=== PATIENT | male | born 1960 | race Caucasian/White ===

== ENCOUNTER 2016-06-08 05:47 | Inpatient (IN) | payer MEDICAID, OTHER ==
[2016-06-08] MEDS ORDERED: NORMAL SALINE 1,000 ML IV ONE ×3 (06:01→10:56)
--- NOTE | 2016-06-08 06:04 | ERNOTE ---
<Omer Giraldo - Last Filed: 06/08/16 08:07> Neuro HPI ER Record Presenting Symptoms: other - altered mental status Time Seen by Provider: 06/08/16 05:56 Source: EMS Exam Limitations: clinical condition Allergies/Adverse Reactions: Allergies Allergy/AdvReac Type Severity Reaction Status Date / Time No Known Allergies Allergy Verified 09/30/14 08:06 Home Medications: HOME MEDICATIONS levETIRAcetam [Keppra] 500 mg PO BID 09/25/14 [Last Taken Unknown] - History of Present Illness Narrative: Pt has been lying on a "friends" floor for 2 days. The friend got concerned and called EMS Onset: cannot confirm onset Severity: moderate - Character of Deficits New weakness: Present: general (diffuse) Additional Deficits: Present: cannot stand Baseline Cognition: Present: alert but confused Associated Symptoms: Reports: fever/chills, sweating, altered mental status. Denies: chest pain Review of Systems - Narrative Narrative: ROS is unreliable in this patient due to confusion. - Review of Systems Gastrointestinal/Abdominal: Present: nausea, vomiting, diarrhea - Reported by EMS as reported to them from homeowner where he has been lying on the floor - Patient's Past Medical History Patient History - Medical: Seizures, Other Patient History - Cardiac/Respiratory: COPD, Hypertension Patient History - Cancer: No Hx of Cancer Patient History - Surgical Procedures: Cataracts, Other Patient History - Other: None - Social History Living Situations: significant other Abuse History: No History of abuse Psych History: Hx of Anxiety, Hx of Depression Alcohol Use: heavy Drug Use: other Physical Exam - Physical Exam General Appearance: Present: mild distress, lethargic Eye Exam: Normal inspection: bilateral Ears, Nose, Throat: Present: other - dried blood in the right nare and in the mouth, no fresh bleeding. Right temporal area concavity- pt states he injured it previously no specifics given Neck: Present: normal inspection, nontender Respiratory: Present: no respiratory distress, normal breath sounds Cardiovascular/Chest: Present: no murmur, tachycardia Gastrointestinal/Abdominal: Present: tenderness - diffuse, abnormal bowel sounds - hypoactive. Absent: guarding, rebound Back Exam: Present: no vertebral tenderness Extremity Exam: Present: no edema, other - cold extremities Neurological Exam: Present: disoriented to time, disoriented to place Skin Exam: Present: cool/dry, pallor Lymphatic Exam: Present: no adenopathy Ara Coma Scale - Assess Eye Opening: To Voice Motor: Obeys Commands Verbal: Confused - Total Coma Scale Total: 13 ED Progress - Results and Orders Patient's Lab Results:: I have reviewed the patient's lab results. Results and Orders: Laboratory Tests 06/08/16 06/08/16 06:05 06:05 WBC 8.7 Hgb 8.7 L Hct 26.0 L Plt Count 81 L Sodium 127 L Chloride 80 L Carbon Dioxide 10.3 L Anion Gap 40.6 H BUN 83 H Creatinine 2.74 H Est GFR (Non-Af Amer) 26 L D Random Glucose 300 H Calcium 8.7 Total Bilirubin 2.6 H AST 128 H ALT 42 Alkaline Phosphatase 81 Creatine Kinase 281 H Total Protein 5.7 L Albumin 2.8 L Ethyl Alcohol Less than 3.0 - Vital Signs Patient's Vital Signs:: I have reviewed the patient's vital signs. Vital Signs: Vital Signs 06/08/16 05:54 Temperature 35.6 C L Pulse Rate 110 H Respiratory 99 H Rate Blood Pressure 115/83 O2 Sat by Pulse 99 Oximetry - EKG EKG read: Interp. by mo EKG Comments: Sinus tachycardia with significant artifact - X-Ray X-Ray #1 X-Ray: chest Interpretation: Interp. by me X-ray Comments: nothing acute X-Ray #2 X-Ray: abdomen Interpretation: Interp. by me X-ray Comments: nothing acute - Progress/Reassessment Chief Complaint: Altered Mental Status Progress:: Improved - Transfer of Care Physician Sign Out: Omer Giraldo Receiving Physician: Sudhir Casas Pending Results: Labs Expected Disposition: Admit Departure Clinical Impression: Dehydration Altered mental status, unspecified Qualifiers: Altered mental status type: somnolence Qualified Code(s): R40.0 - Somnolence Anemia Qualifiers: Anemia type: unspecified type Qualified Code(s): D64.9 - Anemia, unspecified - Departure Disposition: [facility] Condition: Fair <Sudhir Casas - Last Filed: 06/08/16 10:25> Neuro HPI ER Record Date of Service: 06/08/16 Presenting Symptoms: other Immunizations: IMMUNIZATION HX Immunizations Up to Date No History of Influenza Vaccine No Hx Pneumococcal Vaccination No ED Progress - Vital Signs Vital Signs: Vital Signs 06/08/16 06/08/16 06/08/16 05:54 06:09 06:31 Temperature 35.6 C L Pulse Rate 110 H 121 H 128 H Respiratory 99 H 29 H Rate Blood Pressure 115/83 69/45 O2 Sat by Pulse 99 100 Oximetry 06/08/16 06/08/16 06/08/16 06:45 07:32 08:44 Temperature 36.4 C L Pulse Rate 134 H 121 H 122 H Respiratory 32 H 32 H 30 H Rate Blood Pressure 98/41 84/53 107/71 O2 Sat by Pulse 98 98 98 Oximetry 06/08/16 09:15 Temperature Pulse Rate 129 H Respiratory 30 H Rate Blood Pressure 97/58 O2 Sat by Pulse 98 Oximetry
[2016-06-08] MEDS ORDERED: DEXTROSE 50%-WATER 50 ML SYRG IV ONE (06:06)
[2016-06-08] MEDS ORDERED: DEXTROSE 50%-WATER 50 ML SYRG ONE (06:06)
[2016-06-08] MEDS ORDERED: RINGERS SOLUTION,LACTATED 1,000 ML IV ONE (06:07)
[2016-06-08 06:21] LABS: Hemoglobin 8.7 gm/dL (13.5-18.0); Mean Cell Volume 110.2 fl (78-100); Mean Corpuscular Hemoglobin 36.9 pg (27-31); Mean Corpuscular Hgb Conc 33.5 g/dl (32-36); Mean Platelet Volume 13.3 fl (6.0-9.5); Platelet Count 81 K/mm3 (150-450); Red Blood Count 2.36 M/mm3 (4.7-6.0); Red Cell Distribution Width 11.9 % (11.5-14.0); White Blood Count 8.7 K/mm3 (4.0-10.5)
[2016-06-08 06:24] LABS: Total Cells Counted 100
[2016-06-08 06:36] LABS: AST 128 U/L (0-48); Albumin * 2.8 gm/dl (3.4-5.0); Alkaline Phosphatase * 81 U/L (50-170); Anion Gap 40.6 mmol/L (6.8-13.8); BUN/Creatinine Ratio 30.3 (9.0-21.6); Bilirubin, Total 2.6 mg/dL (0.0-1.1); Blood Urea Nitrogen 83 mg/dL (6-23); CK Total * 281 U/L (0-259); Ca. Corrected For Albumin 9.3 mg/dL (8.4-10.2); Calcium * 8.7 mg/dL (7.9-10.9); Carbon Dioxide 10.3 mmol/L (24-32.6); Chloride 80 mmol/L (97-106); Glucose * 300 mg/dL (70-110); Potassium 3.9 mmol/L (3.4-4.6); Sodium 127 mmol/L (132-142); Total Protein 5.7 gm/dL (6.2-8.2)
[2016-06-08 06:37] LABS: Atypical (Reactive) Lymph 1 % (0-2); Band 20 % (0-2.0); Hypochromia 1+; Lymphocyte 14 % (20-51); Macrocytosis 2+; Neutrophil 65 % (42-75); Neutrophil # 5.7 K/mm3 (1.3-6.0); Platelet Estimate Decreased (NORMAL)
[2016-06-08 07:15] LABS: ALT 42 U/L (19-67)
[2016-06-08] MEDS: MULTIVIT INFUSN,ADULT 4,VIT K 10 ML, THIAMINE HCL 100 MG in DEXTROSE 5 % IN WATER 1,000 ML IV SCH ×3 (07:52)
--- OUTSIDE RECORDS SUMMARY | 2016-06-08 07:56 | XMS REPORT | Continuity of Care Document ---
:1960 Author Organization [facility] ([facility]) Address [address] [place] [address] Phone [phone] Care Team Providers Name Role Phone Elvis Lo Primary Care Provider [phone] Source Comments This disclosure is being made pursuant to the Care Everywhere program, applicable federal and state laws, and may not contain all informaitonavailable regarding this patient.[facility] ([facility]) Active Allergies and Adverse Reactions No Known Allergies Current Medications Prescription Sig. Disp. Refills Start Date End Date Status levETIRAcetam 500 mg Take 1 Tab by mouth 90 Tab 3 01/30/2014 Active tablet 2 times daily. Indications: PREVENT SEIZURES brimonidine 0.2 % Instill 1 Drop onto 3 03/18/2015 Active ophthalmic solution the left eye every 12 hours . Active Problems Problem Noted Date Dupuytren's contracture of left hand 04/08/2015 Dupuytren's contracture of right hand 04/08/2015 S/P craniotomy 07/30/2013 Overview: Right [place] bone cranioplasty Acquired skull defect 07/16/2013 Cerebral edema 05/31/2013 Alcohol withdrawal 05/31/2013 Aspiration pneumonia 05/27/2013 SDH (subdural hematoma) 05/26/2013 Brain compression 05/26/2013 Seizures 05/26/2013 Weakness 05/26/2013 Unconscious 05/26/2013 Acute respiratory failure 05/26/2013 Fatty liver 03/20/2013 Plantar fibromatosis 11/04/2012 Alcohol abuse 10/24/2012 Tobacco use disorder 10/24/2012 Immunizations Name Dates Previously Given Next Due Tdap 10/24/2012 Social History Tobacco Use Types Packs/Day Years Used Date Current Every Day Smoker Cigarettes 1 35 Smokeless Tobacco: Never Used Tobacco Cessation:Ready to Quit: Yes; Counseling Given: Yes Comments: Alcohol Use Drinks/Week oz/Week Comments Yes "heavy drinker". half a gallon of whisky every day . never been in rehab. Last Filed Vital Signs Vital Sign Reading Time Taken Blood Pressure 145/96 04/08/2015 9:20 AM PROTOTYPE CARPENTER Pulse 123 04/08/2015 9:20 AM PROTOTYPE CARPENTER Temperature 36.1 C (97 F) 04/08/2015 9:20 AM PROTOTYPE CARPENTER Respiratory Rate 16 07/31/2013 11:58 AM CDT Height 1.73 m (5' 8.11") 04/08/2015 9:20 AM PROTOTYPE CARPENTER Weight 59.875 kg (132 lb) 04/08/2015 9:20 AM PROTOTYPE CARPENTER Body Mass Index 20.01 04/08/2015 9:20 AM PROTOTYPE CARPENTER Oxygen Saturation 95% 07/31/2013 11:58 AM CDT Plan of Care Patient Goal Type Goal Lifestyle Reduce alcohol intake Quit smoking / using tobacco Health Maintenance Due Date Last Done Comments Hepatitis B Vaccine (1 of 3 - Primary Series) 1960 Lipid Disorder Screening 11/19/1979 MMR Vaccine 11/19/1979 Pneumococcal Vaccine (1 of 1 - PPSV23) 1980 Colonoscopy 2011 Prostate Cancer Screening 11/19/2011 Sigmoidoscopy Colon Cancer Screening 11/19/2011 FOBT Colon Cancer Screening 05/29/2014 05/29/2013 Influenza Vaccine: Seasonal (#1) 10/26/2015 Td Vaccine 10/24/2022 10/24/2012 HCV Screening Completed 10/24/2012 Tdap Vaccine Completed 10/24/2012 Results from Last 3 Months Not on file
[2016-06-08] MEDS ORDERED: LORazepam 2 MG/ML DISP.SYRIN IV ONE (08:00)
[2016-06-08] MEDS ORDERED: CALCIUM CARBONATE 500 MG TAB.CHEW ONE (08:13)
[2016-06-08] MEDS ORDERED: LORazepam 2 MG/ML DISP.SYRIN ONE (08:14)
[2016-06-08] MEDS ORDERED: ONDANSETRON 4 MG TAB.RAPDIS ONE (08:15)
[2016-06-08] MEDS ORDERED: ONDANSETRON 4 MG TAB.RAPDIS PO ONE (08:16)
[2016-06-08] MEDS ORDERED: CALCIUM CARBONATE 500 MG TAB.CHEW PO ONE (09:15)
--- OUTSIDE RECORDS SUMMARY | 2016-06-08 11:13 | XMS REPORT | Continuity of Care Document ---
:1960 Author Organization [facility] ([facility]) Address [address] [place] [address] Phone [phone] Care Team Providers Name Role Phone Elvis Lo Primary Care Provider [phone] Source Comments This disclosure is being made pursuant to the Care Everywhere program, applicable federal and state laws, and may not contain all informaitonavailable regarding this patient.[facility] ([facility]) Active Allergies and Adverse Reactions [...] hand 04/08/2015 S/P craniotomy 07/30/2013 Overview: Right [place] bone cranioplasty Acquired skull defect 07/16/2013 Cerebral [...] Taken Blood Pressure 145/96 04/08/2015 9:20 AM CARBON FURNACE OPERATOR Pulse 123 04/08/2015 9:20 AM CARBON FURNACE OPERATOR Temperature 36.1 C (97 F) 04/08/2015 9:20 AM CARBON FURNACE OPERATOR Respiratory Rate 16 07/31/2013 11:58 AM CDT Height 1.73 m (5' 8.11") 04/08/2015 9:20 AM CARBON FURNACE OPERATOR Weight 59.875 kg (132 lb) 04/08/2015 9:20 AM CARBON FURNACE OPERATOR Body Mass Index 20.01 04/08/2015 9:20 AM CARBON FURNACE OPERATOR Oxygen Saturation 95% 07/31/2013 11:58 AM CDT [...]
[2016-06-08 11:56] LABS: Urine Appearance Slightly Cloudy; Urine Bilirubin 3 mg/dl (NEGATIVE); Urine Blood 250 /ul (NEGATIVE); Urine Color Dark Yellow; Urine Ketone 15 mg/dL (NEGATIVE); Urine Nitrite Negative (NEGATIVE); Urine Protein 30 mg/dL (NEGATIVE); Urine Specific Gravity 1.025 SP.GR. (1.005-1.030)
[2016-06-08 11:57] LABS: Urine Bacteria 1+; Urine Mucus Few - 1+; Urine Transitional Epi Cells Few - 1+ /hpf; Urine WBC 0-5 /hpf (0-5)
[2016-06-08] MEDS ORDERED: FLU VACC QS2016-17 36MOS UP/PF 60 MCG/0.5 ML DISP.SYRIN IM ONE (12:21)
[2016-06-08 13:26] LABS: Cocaine Ur Negative (NEGATIVE); Urine Barbiturate Negative (NEGATIVE); Urine Benzodiazepines Negative (NEGATIVE); Urine Opiates Negative (NEGATIVE); Urine PCP Negative (NEGATIVE); Urine THC Negative (NEGATIVE)
[2016-06-08] MEDS ORDERED: LORazepam 1 MG TABLET PO PRN ×3 (15:49)
[2016-06-08] MEDS: FOLIC ACID 1 MG TABLET PO SCH (18:37)
[2016-06-08] MEDS: THIAMINE HCL 100 MG TABLET PO SCH (18:37)
[2016-06-08] MEDS: INSULIN LISPRO 100 UNITS/ML VIAL SC SCH (18:38)
[2016-06-08] MEDS: PANTOPRAZOLE SODIUM 40 MG TABLET.EC PO SCH (20:00)
[2016-06-08] MEDS: levETIRAcetam 500 MG TABLET PO SCH (20:00)
[2016-06-08 21:24] LABS: Mean Cell Volume 102.5 fl (78-100); Mean Corpuscular Hemoglobin 36.8 pg (27-31); Mean Corpuscular Hgb Conc 35.9 g/dl (32-36); Mean Platelet Volume 12.8 fl (6.0-9.5); Platelet Count 73 K/mm3 (150-450); Red Blood Count 2.01 M/mm3 (4.7-6.0); Red Cell Distribution Width 11.8 % (11.5-14.0); White Blood Count 5.2 K/mm3 (4.0-10.5)
[2016-06-08 21:29] LABS: Hematocrit 20.6 % (42.0-52.0); Hemoglobin 7.4 gm/dL (13.5-18.0)
[2016-06-08 21:32] LABS: Anion Gap 13.1 mmol/L (6.8-13.8); BUN/Creatinine Ratio 56.3 (9.0-21.6); Potassium 3.1 mmol/L (3.4-4.6)
--- NOTE | 2016-06-08 22:03 | HP ---
Chief Complaint - Chief Complaint Date of Service: 06/08/16 Time of Service: 19:45 Chief Complaint: Anemia of chronic disease, Altered mental status History of Present Illness: 55 years old male adm to the hospital with altered mental status: Pt alert to self and poor historian. Additional information obtained from previous records. Per ER notes pt was on the floor x2 days at his friends house before he called EMS. PMH significant for alcohol abuse, head injury, hypertension, COPD, seizures and Dupuytres contracture of both hands. In ER CT head: no acute intra- cranial process, previous craniectomy noted. CXR no acute cardiopulmonary process. patient denies dizziness, headache, blurred vision and report hx of left eye blindness. CXR: right paratracheal prominence mediastinal lipomatosis vs adenopathy. Follow up CT chest pending. - Patient's Past Medical History Patient History - Medical: Seizures, Other Patient History - Cardiac/Respiratory: COPD, Hypertension Patient History - Cancer: No Hx of Cancer Patient History - Surgical Procedures: Cataracts, Other Patient History - Other: None - Family History Brother Family History - Cardiac/Respiratory: COPD Father Family History - Cardiac/Respiratory: Hypertension - Social History Living Situations: significant other Abuse History: No History of abuse Psych History: Hx of Anxiety, Hx of Depression Smoking Status: Current every day smoker Have you smoked in the past 12 months: Yes Do you dip or chew tobacco: No Smoking Start Date: 06/08/77 Patient requests Smoking Cessation Consult: No Initiate information on Smoking Cessation: Yes Alcohol Use: heavy Drug Use: other - Immunizations Immunizations Up to Date: No Hx Pneumococcal Vaccination: No History of Influenza Vaccine: No Review Of Systems (GEN) - Review of Systems Generalized/Overall Review: Present: Weakness, Fatigue EENTM: Present: Other - let eye blindness Respiratory: Present: Cough Cardiac: Present: No Symptoms Reported Abdominal: Present: Constipation, Melena Genitourinary: Present: No Symptoms Reported Musculoskeletal: Present: No Symptoms Reported Neurological: Present: Seizure, Weakness Skin: Present: Bruising - BLLE Endocrine: Present: No Symptoms Reported Allergies/Adverse Reactions: Allergies Allergy/AdvReac Type Severity Reaction Status Date / Time No Known Allergies Allergy Verified 09/30/14 08:06 Home Medications: HOME MEDICATIONS levETIRAcetam [Keppra] 500 mg PO BID 09/25/14 [Last Taken Unknown] Exam - Exam Vital Signs: Vital Signs - Last Taken Temp 37.0 C 06/08/16 19:04 Pulse 117 H 06/08/16 19:04 Resp 20 06/08/16 19:04 BP 99/52 06/08/16 19:04 Pulse Ox 93 06/08/16 19:04 Constitutional: Present: Alert, Cooperative, No distress, Looks Older than stated age ENT Exam: Present: moist mucous membranes Eye Exam: bilateral eye: scleral icterus, left eye: abnormal pupil Neck: Present: full range of motion Back Exam: Present: normal inspection Breasts: Present: Exam deferred Respiratory: Present: chest non-tender, normal breath sounds, no respiratory distress, decreased breath sounds Cardiovascular/Chest: Present: normal peripheral pulses, regular rate, rhythm, no chest tenderness, no edema, tachycardia Peripheral Pulses: dorsalis-pedis (R): 2+, dorsalis-pedis (L): 2+ Abdomen: Present: soft, nontender, no rebound tenderness, hypoactive /Rectal: Present: Exam deferred Extremity: Present: normal range of motion, normal inspection, no pedal edema, no calf tenderness Skin Exam: Present: jaundice, other - BLLE bruising Neurologic: Present: alert, normal mood/affect Appearance: Present: appropriate appearance, impaired recent memory Eye contact: Present: cooperative Thoughts: Present: no apparent hallucination Diagnostic Studies: Abnormal Lab Results 06/08/16 06/08/16 06/08/16 Range/Units 11:15 21:00 21:00 RBC 2.01 L (4.7-6.0) M/mm3 Hgb 7.4 L* (13.5-18.0) gm/dL Hct 20.6 L* D (42.0-52.0) % MCV 102.5 H (78-100) fl MCH 36.8 H (27-31) pg Plt Count 73 L (150-450) K/mm3 MPV 12.8 H (6.0-9.5) fl Sodium 130 L (132-142) mmol/L Potassium 3.1 L D (3.4-4.6) mmol/L Chloride 91 L (97-106) mmol/L BUN 58 H (6-23) mg/dL BUN/Creatinine Ratio 56.3 H (9.0-21.6) Random Glucose 117 H D (70-110) mg/dL Urine Protein 30 H (NEGATIVE) mg/dL Urine Blood 250 H (NEGATIVE) /ul Urine Bilirubin 3 H (NEGATIVE) mg/dl Urine Ictotest Positive H (NEGATIVE) Urine Urobilinogen 2.0 H (NORMAL) EU/dl Urine RBC 5-10 H (0-5) /hpf Ur Epithelial Cells 10-25 H (0-5) /hpf Ur Transition Epith Cell Few - 1+ H (NONE) /hpf Urine Bacteria 1+ H (NONE) Fine Granular Casts 5-10 H (NONE) /LPF Urine Mucus Few - 1+ H (NONE) Laboratory Results WBC 5.2 K/mm3 (4.0-10.5) D 06/08/16 21:00 RBC 2.01 M/mm3 (4.7-6.0) L 06/08/16 21:00 Hgb 7.4 gm/dL (13.5-18.0) L* 06/08/16 21:00 Hct 20.6 % (42.0-52.0) L* D 06/08/16 21:00 MCV 102.5 fl (78-100) H 06/08/16 21:00 MCH 36.8 pg (27-31) H 06/08/16 21:00 MCHC 35.9 g/dl (32-36) 06/08/16 21:00 RDW 11.8 % (11.5-14.0) 06/08/16 21:00 Plt Count 73 K/mm3 (150-450) L 06/08/16 21:00 MPV 12.8 fl (6.0-9.5) H 06/08/16 21:00 Neutrophils % (Manual) 65 % (42-75) 06/08/16 06:05 Band Neuts % (Manual) 20 % (0-2.0) H 06/08/16 06:05 Lymphocytes % (Manual) 14 % (20-51) L 06/08/16 06:05 Neutrophils # (Manual) 5.7 K/mm3 (1.3-6.0) 06/08/16 06:05 Lymphocytes # (Manual) 1.2 k/mm3 (1.5-3.5) L 06/08/16 06:05 Nucleated RBCs 6.0 % (0-1) H 06/08/16 06:05 Atypic/Reactive Lymphs 1 % (0-2) 06/08/16 06:05 Platelet Estimate Decreased (NORMAL) L 06/08/16 06:05 Hypochromasia 1+ 06/08/16 06:05 Macrocytosis 2+ 06/08/16 06:05 pCO2 15.6 mmHg (35.0-48.0) L* 06/08/16 07:38 pO2 105.0 mmHg (83.0-108.0) 06/08/16 07:38 HCO3 8.9 mmol/L (21.0-28.0) L 06/08/16 07:38 Total CO2 9.4 mmol/L (19.0-24.0) L 06/08/16 07:38 Base Excess -14.4 mmol/L (-2.0-3.0) L 06/08/16 07:38 ABG pH 7.37 (7.35-7.45) 06/08/16 07:38 ABG O2 Sat (Measured) 97.9 % (94.0-98.0) 06/08/16 07:38 Sodium 130 mmol/L (132-142) L 06/08/16 21:00 Plasma Sodium 130 mmol/L (130-142) 06/08/16 21:00 Potassium 3.1 mmol/L (3.4-4.6) L D 06/08/16 21:00 Chloride 91 mmol/L (97-106) L 06/08/16 21:00 Carbon Dioxide 29.0 mmol/L (24-32.6) 06/08/16 21:00 Anion Gap 13.1 mmol/L (6.8-13.8) 06/08/16 21:00 BUN 58 mg/dL (6-23) H 06/08/16 21:00 Creatinine 1.03 mg/dL (0.4-1.4) 06/08/16 21:00 Est GFR (Non-Af Amer) 80 mL/min (60-130) D 06/08/16 21:00 BUN/Creatinine Ratio 56.3 (9.0-21.6) H 06/08/16 21:00 Random Glucose 117 mg/dL (70-110) H D 06/08/16 21:00 Calcium 8.0 mg/dL (7.9-10.9) 06/08/16 21:00 Calcium Adj for Albumin 9.3 mg/dL (8.4-10.2) 06/08/16 06:05 Magnesium 1.9 mg/dL (1.2-2.8) 06/08/16 21:00 Total Bilirubin 2.6 mg/dL (0.0-1.1) H 06/08/16 06:05 AST 128 U/L (0-48) H 06/08/16 06:05 ALT 42 U/L (19-67) 06/08/16 06:05 Alkaline Phosphatase 81 U/L (50-170) 06/08/16 06:05 Creatine Kinase 281 U/L (0-259) H 06/08/16 06:05 Total Protein 5.7 gm/dL (6.2-8.2) L 06/08/16 06:05 Albumin 2.8 gm/dl (3.4-5.0) L 06/08/16 06:05 Urine Color Dark yellow 06/08/16 11:15 Urine Appearance Slightly cloudy 06/08/16 11:15 Urine pH 6.0 pH (5.0-7.0) 06/08/16 11:15 Ur Specific [place] 1.025 SP.GR. (1.005-1.030) 06/08/16 11:15 Urine Protein 30 mg/dL (NEGATIVE) H 06/08/16 11:15 Urine Glucose (UA) Negative mg/dL (NEGATIVE) 06/08/16 11:15 Urine Ketones 15 mg/dL (NEGATIVE) 06/08/16 11:15 Urine Blood 250 /ul (NEGATIVE) H 06/08/16 11:15 Urine Nitrate Negative (NEGATIVE) 06/08/16 11:15 Urine Bilirubin 3 mg/dl (NEGATIVE) H 06/08/16 11:15 Urine Ictotest Positive (NEGATIVE) H 06/08/16 11:15 Prot Sulfosalicylic Acd 1+ mg/dL (0) 06/08/16 11:15 Urine Urobilinogen 2.0 EU/dl (NORMAL) H 06/08/16 11:15 Ur Leukocyte Esterase Negative /ul (NEGATIVE) 06/08/16 11:15 Urine RBC 5-10 /hpf (0-5) H 06/08/16 11:15 Urine WBC 0-5 /hpf (0-5) 06/08/16 11:15 Ur Epithelial Cells 10-25 /hpf (0-5) H 06/08/16 11:15 Ur Transition Epith Cell Few - 1+ /hpf (NONE) H 06/08/16 11:15 Urine Bacteria 1+ (NONE) H 06/08/16 11:15 Fine Granular Casts 5-10 /LPF (NONE) H 06/08/16 11:15 Urine Mucus Few - 1+ (NONE) H 06/08/16 11:15 Urine Culture Comments Culture to follow 06/08/16 11:15 Urine Opiates Screen Negative (NEGATIVE) 06/08/16 11:15 Barbiturate Screen Negative (NEGATIVE) 06/08/16 11:15 Ur Phencyclidine Scrn Negative (NEGATIVE) 06/08/16 11:15 Urine Amphetamine Negative (NEGATIVE) 06/08/16 11:15 U Benzodiazepines Scrn Negative (NEGATIVE) 06/08/16 11:15 Urine Cocaine Screen Negative (NEGATIVE) 06/08/16 11:15 Urine Marijuana (THC) Negative (NEGATIVE) 06/08/16 11:15 Ethyl Alcohol Less than 3.0 mg/dL (0.0-10.0) 06/08/16 06:05 Assessment/Plan - Narrative Narrative: Altered mental status: secondary to possible alcohol abuse On adm pt is confused and unable to provide medical history CT head no acute intracranial abnormality, pt with hx heady injury s/p craniectomy 10/08 CXR: right paratracheal prominence mediastinal lipomatosis vs adenopathy. Follow up CT chest pending. Urine drug test pending Continue to monitor and provide supportive care Continue with IVF hydration and MVI Dehydration IVF bolus given and continue with IVF MVI infusion Monitor CMP in am On adm Bun/ cre 83/2.74 ----> 58/1.03 gradually improving after IVF resuscitation Acute blood loss anemia- likely due to GI bleed vs anemia of chronic disease On adm Hgb 8.7---->7.4 gradually trending down possible due in part to hemo- dilution an the GI bleeding Stool OB positive pt stated he had seen black stool in the past but unsure when, he currently feels constipated . Monitor H/H in am Iron panel pending Initiated oral iron Premedicate with Tylenol and Benadryl before transfusion and Lasix between Hypokalemia On adm K+ level 3.9--->3.1 Supplemented Seizures-chronic Continue with home dose of Keppra pad side rails and safety measures while hospitalized. Substance abuse [facility] protocol with ativan Smoking cessation Constipation Oral lasxative and rectal enema Code status: Full Anticipate discharge 1-3 days and follow up with PCP Time 45 minutes and previous chart reviewed. - Assessment/Plan (1) Altered mental status, unspecified Problem: Acute Qualifiers: Altered mental status type: somnolence Qualified Code(s): R40.0 - Somnolence (2) Anemia Problem: Acute Qualifiers: Anemia type: unspecified type Qualified Code(s): D64.9 - Anemia, unspecified (3) Dehydration Problem: Acute (4) Alcohol abuse Problem: Chronic
[2016-06-09] MEDS ORDERED: MINERAL OIL 1 ENEMA BTL RC ONE (02:00)
[2016-06-09] MEDS ORDERED: MAGNESIUM HYDROXIDE 30 ML UDC PO ONE (02:00)
[2016-06-09] MEDS ORDERED: diphenhydrAMINE HCL 50 MG/ML VIAL IV ONE ×2 (02:00→04:00)
[2016-06-09 04:43] LABS: Iron 131 mcg/dL (35-120); Transferrin Sat. (% Sat.) 89 % (15-55)
[2016-06-09] MEDS ORDERED: FUROSEMIDE 10 MG/ML VIAL IV ONE ×2 (05:00→10:00)
[2016-06-09] MEDS: INSULIN LISPRO 100 UNITS/ML VIAL SC SCH ×3 (06:49→16:34)
[2016-06-09] MEDS: PANTOPRAZOLE SODIUM 40 MG TABLET.EC PO SCH ×2 (06:54→20:23)
[2016-06-09] MEDS ORDERED: FERROUS SULFATE 325 MG TABLET PO SCH (09:00)
[2016-06-09] MEDS: FOLIC ACID 1 MG TABLET PO SCH (09:56)
[2016-06-09] MEDS: levETIRAcetam 500 MG TABLET PO SCH ×2 (10:11→20:23)
[2016-06-09] MEDS: MULTIVITAMINS 1 CAP CAPSULE PO SCH (10:11)
[2016-06-09] MEDS: THIAMINE HCL 100 MG TABLET PO SCH (10:11)
[2016-06-09] MEDS: MULTIVIT INFUSN,ADULT 4,VIT K 10 ML, THIAMINE HCL 100 MG in DEXTROSE 5 % IN WATER 1,000 ML IV SCH ×3 (14:27)
[2016-06-09] MEDS ORDERED: MULTIVIT INFUSN,ADULT 4,VIT K 10 ML, THIAMINE HCL 100 MG in DEXTROSE 5 % IN WATER 1,000 ML IV SCH ×3 (15:00)
[2016-06-09 15:37] LABS: Hematocrit 26.4 % (42.0-52.0); Hemoglobin 9.6 gm/dL (13.5-18.0); Mean Cell Volume 90.7 fl (78-100); Mean Corpuscular Hgb Conc 36.4 g/dl (32-36); Mean Platelet Volume 12.6 fl (6.0-9.5); Platelet Count 76 K/mm3 (150-450); Red Blood Count 2.91 M/mm3 (4.7-6.0); Red Cell Distribution Width 19.2 % (11.5-14.0); White Blood Count 6.5 K/mm3 (4.0-10.5)
[2016-06-09 15:48] LABS: Total Cells Counted 100
[2016-06-09 15:56] LABS: Hemoglobin A1C 5.2 % (4.00-6.0)
[2016-06-09 16:00] LABS: ALT 59 U/L (19-67); AST 255 U/L (0-48); Albumin * 2.5 gm/dl (3.4-5.0); Alkaline Phosphatase * 116 U/L (50-170); Anion Gap 9.2 mmol/L (6.8-13.8); BUN/Creatinine Ratio 38.5 (9.0-21.6); Bilirubin Direct 2.4 mg/dL (0.0-0.3); Bilirubin, Total 3.1 mg/dL (0.0-1.1); Bilirubin,Indirect 0.7 mg/dL (0.1-0.7); Calcium * 8.8 mg/dL (7.9-10.9); Carbon Dioxide 32.6 mmol/L (24-32.6); Chloride 96 mmol/L (97-106); Glucose * 135 mg/dL (70-110); Potassium 2.8 mmol/L (3.4-4.6); Sodium 135 mmol/L (132-142); Total Protein 5.1 gm/dL (6.2-8.2); Vitamin B12 1340 pg/mL (193-986)
[2016-06-09 16:20] LABS: Blood Urea Nitrogen 25 mg/dL (6-23)
[2016-06-09] MEDS ORDERED: POTASSIUM CHLORIDE 20 MEQ TABLET.SA PO STA (16:29)
[2016-06-09 16:38] LABS: Band 3 % (0-2.0); Immature Granulocyte 6 (0-1); Lymphocyte 9 % (20-51); Monocyte 21 % (0-9)
[2016-06-09 16:39] LABS: Eosinophil 1 % (0-3); Neutrophil 60 % (42-75); Neutrophil # 3.9 K/mm3 (1.3-6.0)
[2016-06-09 16:40] LABS: Anisocytosis 2+; Platelet Estimate Decreased (NORMAL); Poikilocytosis 1+
[2016-06-09 16:42] LABS: Hypochromia 2+; Microcytosis 1+
[2016-06-09] MEDS: POTASSIUM CHLORIDE 20 MEQ TABLET.SA PO SCH (16:51)
[2016-06-09] MEDS: SENNOSIDES/DOCUSATE SODIUM 1 TAB TABLET PO SCH (20:23)
--- NOTE | 2016-06-09 22:13 | PN ---
Subjective - Date and Time Seen Date: 06/09/16 Time: 19:25 Subjective Narrative: patient seen today with family at the bedside, he his AOX3 no acute distress, he denies shortness of breath, reported a productive cough and stated he had large bowel movement earlier today. Pt stated he normally drink alcohol every day and have no urgent desire to quit and don't need counseling. plan of care discussed with pt and family they verbalized understanding and agrees. Objective - Review of Systems Generalized/Overall Review: Reports: No Symptoms Reported EENTM: Reports: Other - left eye blindness Respiratory: Reports: No Symptoms Reported Cardiac: Reports: No Symptoms Reported Abdominal: Reports: No Symptoms Reported Genitourinary Symptoms: Reports: No Symptoms Reported Musculoskeletal Complaints: Reports: No Symptoms Reported Neurological: Reports: No Symptoms Reported Skin: Reports: No Symptoms Reported Endocrine: Reports: No Symptoms Reported - Vitals Vitals: Last Vital Signs Temp 37.2 C 06/09/16 19:29 Pulse 111 H 06/09/16 19:29 Resp 18 06/09/16 19:29 BP 115/66 06/09/16 19:29 Pulse Ox 94 06/09/16 19:29 - Abnormal Lab Findings Abnormal Lab Findings: Abnormal Lab Results 06/08/16 06/09/16 06/09/16 Range/Units 23:15 01:43 01:43 RBC (4.7-6.0) M/mm3 Hgb (13.5-18.0) gm/dL Hct (42.0-52.0) % MCH (27-31) pg MCHC (32-36) g/dl RDW (11.5-14.0) % Plt Count (150-450) K/mm3 MPV (6.0-9.5) fl Band Neuts % (Manual) (0-2.0) % Lymphocytes % (Manual) (20-51) % Monocytes % (Manual) (0-9) % Immature Granulocytes (0-1) Lymphocytes # (Manual) (1.5-3.5) k/mm3 Monocytes # (Manual) (0.0-1.0) k/mm3 Nucleated RBCs (0-1) % Platelet Estimate (NORMAL) Potassium (3.4-4.6) mmol/L Chloride (97-106) mmol/L BUN (6-23) mg/dL Est GFR (Non-Af Amer) (60-130) mL/min BUN/Creatinine Ratio (9.0-21.6) Random Glucose (70-110) mg/dL Iron 131 H (35-120) mcg/dL TIBC 148 L (260-445) mcg/dL Transferrin % Sat 89 H (15-55) % Ferritin 2037 H (26-388) ng/mL Total Bilirubin (0.0-1.1) mg/dL Direct Bilirubin (0.0-0.3) mg/dL AST (0-48) U/L Total Protein (6.2-8.2) gm/dL Albumin (3.4-5.0) gm/dl Vitamin B12 (193-986) pg/mL Stool Occult Blood Positive H Crossmatch 06/09/16 06/09/16 06/09/16 Range/Units 01:54 15:13 15:13 RBC 2.91 L (4.7-6.0) M/mm3 Hgb 9.6 L (13.5-18.0) gm/dL Hct 26.4 L (42.0-52.0) % MCH 33.0 H (27-31) pg MCHC 36.4 H (32-36) g/dl RDW 19.2 H (11.5-14.0) % Plt Count 76 L (150-450) K/mm3 MPV 12.6 H (6.0-9.5) fl Band Neuts % (Manual) 3 H (0-2.0) % Lymphocytes % (Manual) 9 L (20-51) % Monocytes % (Manual) 21 H (0-9) % Immature Granulocytes 6 H (0-1) Lymphocytes # (Manual) 0.6 L (1.5-3.5) k/mm3 Monocytes # (Manual) 1.4 H (0.0-1.0) k/mm3 Nucleated RBCs 5.0 H (0-1) % Platelet Estimate Decreased L (NORMAL) Potassium 2.8 L (3.4-4.6) mmol/L Chloride 96 L (97-106) mmol/L BUN 25 H D (6-23) mg/dL Est GFR (Non-Af Amer) 136 H D (60-130) mL/min BUN/Creatinine Ratio 38.5 H (9.0-21.6) Random Glucose 135 H (70-110) mg/dL Iron (35-120) mcg/dL TIBC (260-445) mcg/dL Transferrin % Sat (15-55) % Ferritin (26-388) ng/mL Total Bilirubin 3.1 H (0.0-1.1) mg/dL Direct Bilirubin 2.4 H (0.0-0.3) mg/dL AST 255 H (0-48) U/L Total Protein 5.1 L (6.2-8.2) gm/dL Albumin 2.5 L (3.4-5.0) gm/dl Vitamin B12 1340 H (193-986) pg/mL Stool Occult Blood Crossmatch See Detail - Exam Constitutional: Present: Alert, Oriented x3, Cooperative, Well developed, No distress, Looks Older than stated age ENT Exam: Present: moist mucous membranes Neck: Present: full range of motion Breasts: Present: Exam deferred Respiratory: Present: chest non-tender, normal breath sounds, no respiratory distress, decreased breath sounds Cardiovascular/Chest: Present: normal peripheral pulses, no chest tenderness, no edema, tachycardia Abdomen: Present: Normal bowel sounds, soft, nontender, nondistended, no rebound tenderness /Rectal: Present: Exam deferred Extremity: Present: non-tender, normal inspection, no pedal edema, normal capillary refill, other - hand contracture Skin Exam: Present: jaundice Appearance: Present: appropriate appearance Eye contact: Present: good eye contact Thoughts: Present: normal thought pattern Assessment/Plan Plan Narrative: Acute blood loss anemia- likely due to GI bleed vs anemia of chronic disease - improved On adm Hgb 8.7---->7.4 ---->9.6 post transfusion S/P 2UPRBC Stool OB positive pt stated he had seen black stool in the past but unsure when, he currently feels constipated . Iron panel noted On Ct chest show esophagitis: Pt will need a colonoscpy and EGD upon discharge, will refer to GI consult service. Aspirated Pneumonia : suspected, pt was on his floor for few days likely due to alcohol intoxication CT chest: small right lower lobe posterior consolidation and trace pleural effusion. WBC- WNL Blood culture no growth Initiated Azithromycin and Rocephin. Cirrhosis liver? pt with long standing history of alcohol abuse with no plans to stop drinking. Bili elevated initiated lactulose and monitor in am CEA, hepatitis panel and US Liver pending Dehydration- gradually improving IVF bolus given and continue with IVF MVI infusion Monitor CMP in am On adm Bun/ cre 83/2.74 ----> 58/1.03----> 25/0.65 continue to improve Hypokalemia On adm K+ level 3.9--->3.1---->2.8 Continue with supplemented K-dur Chronic Seizures-stable Continue with home dose of Keppra pad side rails and safety measures while hospitalized. 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 Follow up CT chest pending. Urine drug negative Continue to monitor and provide supportive care DC IVF and continue with folic, MV and thiamine orally Code status: Full Anticipate discharge 1-2 days and follow up with PCP Pt will need GI consult for out-pt colonoscopy and EGD upon discharge Time 20 minutes - Problems/Diagnosis (1) Anemia Problem: Acute Qualifiers: Anemia type: unspecified type Qualified Code(s): D64.9 - Anemia, unspecified (2) Altered mental status, unspecified Problem: Resolved Qualifiers: Altered mental status type: somnolence Qualified Code(s): R40.0 - Somnolence (3) Dehydration Problem: Resolved (4) Alcohol abuse Problem: Chronic (5) Hypokalemia Problem: Acute (6) Aspiration pneumonia Problem: Acute Qualifiers: Laterality: right Lung location: lower lobe of lung
[2016-06-09] MEDS: LACTULOSE 10 G/15 ML BTL PO SCH (22:18)
[2016-06-09] MEDS: AZITHROMYCIN 500 MG in DEXTROSE 5 % IN WATER 250 ML IV SCH ×2 (22:57)
[2016-06-10 05:57] LABS: Hematocrit 28.2 % (42.0-52.0); Hemoglobin 10.1 gm/dL (13.5-18.0); Mean Cell Volume 91.9 fl (78-100); Mean Corpuscular Hemoglobin 32.9 pg (27-31); Mean Corpuscular Hgb Conc 35.8 g/dl (32-36); Mean Platelet Volume 12.6 fl (6.0-9.5); NRBC# 0.8 k/mm3 (0-1); Neutrophil # 4.9 K/mm3 (1.3-6.0); Neutrophil % 52.1 % (42-75.0); Platelet Count 108 K/mm3 (150-450); Red Blood Count 3.07 M/mm3 (4.7-6.0); White Blood Count 9.4 K/mm3 (4.0-10.5)
[2016-06-10 06:08] LABS: Total Cells Counted 100
[2016-06-10 06:29] LABS: Atypical (Reactive) Lymph 7 % (0-2); Band 7 % (0-2.0); Eosinophil 1 % (0-3); Hypochromia 1+; Lymphocyte 15 % (20-51); Macrocytosis 2+; Monocyte 21 % (0-9); Neutrophil 49 % (42-75); Neutrophil # 4.6 K/mm3 (1.3-6.0)
[2016-06-10 06:30] LABS: Platelet Estimate Decreased (NORMAL)
[2016-06-10 06:32] LABS: Albumin * 2.5 gm/dl (3.4-5.0); Anion Gap 11.2 mmol/L (6.8-13.8); BUN/Creatinine Ratio 23.3 (9.0-21.6); Bilirubin, Total 2.7 mg/dL (0.0-1.1); Ca. Corrected For Albumin 10.1 mg/dL (8.4-10.2); Calcium * 9.2 mg/dL (7.9-10.9); Carbon Dioxide 31.2 mmol/L (24-32.6); Potassium 3.4 mmol/L (3.4-4.6); Total Protein 5.5 gm/dL (6.2-8.2)
[2016-06-10] MEDS: INSULIN LISPRO 100 UNITS/ML VIAL SC SCH ×3 (06:52→16:23)
[2016-06-10] MEDS: PANTOPRAZOLE SODIUM 40 MG TABLET.EC PO SCH ×4 (07:05→20:09)
[2016-06-10] MEDS: FOLIC ACID 1 MG TABLET PO SCH (08:57)
[2016-06-10] MEDS: THIAMINE HCL 100 MG TABLET PO SCH (08:57)
[2016-06-10] MEDS: levETIRAcetam 500 MG TABLET PO SCH ×2 (08:57→20:09)
[2016-06-10] MEDS: MULTIVITAMINS 1 CAP CAPSULE PO SCH (08:57)
[2016-06-10] MEDS: POTASSIUM CHLORIDE 20 MEQ TABLET.SA PO SCH ×2 (08:58→16:20)
[2016-06-10] MEDS: LACTULOSE 10 G/15 ML BTL PO SCH ×2 (08:59→20:09)
[2016-06-10] MEDS: SENNOSIDES/DOCUSATE SODIUM 1 TAB TABLET PO SCH (20:10)
[2016-06-10] MEDS: AZITHROMYCIN 500 MG in DEXTROSE 5 % IN WATER 250 ML IV SCH ×2 (22:18)
[2016-06-11] MEDS: ACETAMINOPHEN WITH CODEINE 1 EACH TABLET PO PRN ×2 (00:03→21:03)
[2016-06-11] MEDS: INSULIN LISPRO 100 UNITS/ML VIAL SC SCH ×3 (06:45→17:21)
[2016-06-11] MEDS: PANTOPRAZOLE SODIUM 40 MG TABLET.EC PO SCH ×2 (06:45→20:10)
[2016-06-11 07:18] LABS: BUN/Creatinine Ratio 14.8 (9.0-21.6)
[2016-06-11 07:19] LABS: Albumin * 2.4 gm/dl (3.4-5.0); Anion Gap 9.7 mmol/L (6.8-13.8); Bilirubin, Total 1.5 mg/dL (0.0-1.1); Ca. Corrected For Albumin 9.9 mg/dL (8.4-10.2); Calcium * 8.9 mg/dL (7.9-10.9); Carbon Dioxide 30.1 mmol/L (24-32.6); Potassium 3.8 mmol/L (3.4-4.6); Total Protein 5.6 gm/dL (6.2-8.2)
[2016-06-11 08:01] LABS: Chol/HDL Risk Ratio 13.7 mg/dL (3.3-5.0)
[2016-06-11] MEDS: THIAMINE HCL 100 MG TABLET PO SCH (08:26)
[2016-06-11] MEDS: POTASSIUM CHLORIDE 20 MEQ TABLET.SA PO SCH ×2 (08:26→17:22)
[2016-06-11] MEDS: FOLIC ACID 1 MG TABLET PO SCH (08:26)
[2016-06-11] MEDS: LACTULOSE 10 G/15 ML BTL PO SCH ×2 (08:26→20:09)
[2016-06-11] MEDS: levETIRAcetam 500 MG TABLET PO SCH ×2 (08:26→20:10)
[2016-06-11] MEDS: MULTIVITAMINS 1 CAP CAPSULE PO SCH (08:26)
--- NOTE | 2016-06-11 13:12 | PN ---
Subjective - Date and Time Seen Date: 06/10/16 Time: 12:05 Subjective Narrative: I was notified late morning that Mr. Lloyd was also a patient I needed to see. I've been gone for the last three days. I came to see him over the noon hour. I reviewed the record and examined the patient. He had an abnormal gallbladder ultrasound and will very shortly be going for a HIDA scan. Objective - Review of Systems Generalized/Overall Review: Reports: Malaise EENTM: Reports: No Symptoms Reported Respiratory: Reports: No Symptoms Reported Cardiac: Reports: No Symptoms Reported Abdominal: Reports: No Symptoms Reported Genitourinary Symptoms: Reports: No Symptoms Reported Musculoskeletal Complaints: Reports: No Symptoms Reported Neurological: Reports: No Symptoms Reported Skin: Reports: No Symptoms Reported Endocrine: Reports: No Symptoms Reported Misc: All systems neg except as marked - Vitals Vitals: Last Vital Signs Selected Entries 06/10/16 10:27 Temperature 36.9 C Temperature Temporal Artery Source Scan Pulse Rate 111 H Respiratory 16 Rate Respiratory Normal Depth Blood Pressure 97/61 Blood Pressure Supine Position O2 Sat by Pulse 94 Oximetry Oxygen Delivery Room Air Method - Abnormal Lab Findings Abnormal Lab Findings: Abnormal Lab Results 06/11/16 06/11/16 Range/Units 06:20 06:38 Est GFR (Non-Af Amer) 169 H (60-130) mL/min Total Bilirubin 1.5 H (0.0-1.1) mg/dL AST 291 H (0-48) U/L ALT 128 H (19-67) U/L Alkaline Phosphatase 214 H (50-170) U/L Total Protein 5.6 L (6.2-8.2) gm/dL Albumin 2.4 L (3.4-5.0) gm/dl HDL Cholesterol 10 L (40-60) mg/dL Cholesterol/HDL Ratio 13.7 H (3.3-5.0) mg/dL - Exam Constitutional: Present: Alert, Cooperative, Well developed ENT Exam: Present: normal ENT inspection Neck: Present: normal inspection Respiratory: Present: lungs clear, no respiratory distress Cardiovascular/Chest: Present: regular rate, rhythm, no murmur Abdomen: Present: Normal bowel sounds, soft, nontender, nondistended, no rebound tenderness, no hepatospenomegaly, no masses Extremity: Present: no pedal edema Skin Exam: Present: normal color, warm/dry, no cyanosis Neurologic: Present: alert Appearance: Present: impaired insight, impaired recent memory, impaired remote memory Eye contact: Present: cooperative Assessment/Plan Plan Narrative: Continue IV antibiotics. Labs as needed. HIDA scan. Minimental status exam. - Problems/Diagnosis (1) Gallstones Problem: Acute (2) Dementia Problem: Chronic Qualifiers: Dementia type: associated with alcoholism (3) Anemia Problem: Acute Qualifiers: Anemia type: unspecified type Qualified Code(s): D64.9 - Anemia, unspecified (4) Aspiration pneumonia Problem: Acute Qualifiers: Laterality: right Lung location: lower lobe of lung (5) Hypokalemia Problem: Acute (6) Alcohol abuse Problem: Chronic (7) Dehydration Problem: Resolved
--- NOTE | 2016-06-11 13:24 | PN ---
Subjective - Date and Time Seen Date: 06/11/16 Time: 13:00 Subjective Narrative: Lab ruling out pathogen on blood culture. Patient has no complaints this morning. HIDA scan normal yesterday. Scored on his minimental status exam yesterday. Objective - Review of Systems Generalized/Overall Review: Reports: Malaise EENTM: Reports: No Symptoms Reported Respiratory: Reports: No Symptoms Reported Cardiac: Reports: No Symptoms Reported Abdominal: Reports: No Symptoms Reported Genitourinary Symptoms: Reports: No Symptoms Reported Musculoskeletal Complaints: Reports: No Symptoms Reported Neurological: Reports: No Symptoms Reported Skin: Reports: No Symptoms Reported Endocrine: Reports: No Symptoms Reported Misc: All systems neg except as marked - Vitals Vitals: Last Vital Signs Selected Entries 06/11/16 11:41 Temperature 36.6 C Temperature Oral Source Pulse Rate 93 Respiratory 18 Rate Blood Pressure 103/59 Blood Pressure Sitting Position O2 Sat by Pulse 98 Oximetry Oxygen Delivery Room Air Method Oxygen Flow 0 Rate - Abnormal Lab Findings Abnormal Lab Findings: Abnormal Lab Results 06/11/16 06/11/16 Range/Units 06:20 06:38 Est GFR (Non-Af Amer) 169 H (60-130) mL/min Total Bilirubin 1.5 H (0.0-1.1) mg/dL AST 291 H (0-48) U/L ALT 128 H (19-67) U/L Alkaline Phosphatase 214 H (50-170) U/L Total Protein 5.6 L (6.2-8.2) gm/dL Albumin 2.4 L (3.4-5.0) gm/dl HDL Cholesterol 10 L (40-60) mg/dL Cholesterol/HDL Ratio 13.7 H (3.3-5.0) mg/dL - Exam Constitutional: Present: Alert, Cooperative, No distress. Absent: Well nourished ENT Exam: Present: normal ENT inspection Neck: Present: normal inspection Respiratory: Present: normal breath sounds, no respiratory distress Cardiovascular/Chest: Present: regular rate, rhythm, no murmur Abdomen: Present: Normal bowel sounds, soft, nontender, nondistended, no rebound tenderness, no hepatospenomegaly, no masses Extremity: Present: normal inspection, no pedal edema Skin Exam: Present: normal color, warm/dry, no cyanosis Neurologic: Present: alert Appearance: Present: impaired insight, impaired recent memory, impaired remote memory Eye contact: Present: cooperative Assessment/Plan Plan Narrative: Liver panel tomorrow. Continue IV antibiotics. Poor candidate for living at home. - Problems/Diagnosis (1) Gallstones Problem: Acute (2) Dementia Problem: Chronic Qualifiers: Dementia type: associated with alcoholism (3) Anemia Problem: Acute Qualifiers: Anemia type: unspecified type Qualified Code(s): D64.9 - Anemia, unspecified (4) Aspiration pneumonia Problem: Acute Qualifiers: Laterality: right Lung location: lower lobe of lung (5) Hypokalemia Problem: Acute (6) Alcohol abuse Problem: Chronic (7) Dehydration Problem: Resolved
[2016-06-11] MEDS: INSULIN GLARGINE,HUM.REC.ANLOG 100 UNITS/ML VIAL SC SCH (20:09)
[2016-06-11] MEDS: SENNOSIDES/DOCUSATE SODIUM 1 TAB TABLET PO SCH (20:10)
[2016-06-11] MEDS: AZITHROMYCIN 500 MG in DEXTROSE 5 % IN WATER 250 ML IV SCH ×2 (22:17)
[2016-06-12 05:46] LABS: Hemoglobin 10.2 gm/dL (13.5-18.0); Mean Cell Volume 94.9 fl (78-100); Mean Corpuscular Hemoglobin 32.3 pg (27-31); Mean Platelet Volume 11.4 fl (6.0-9.5); Platelet Count 119 K/mm3 (150-450); Red Blood Count 3.16 M/mm3 (4.7-6.0); Red Cell Distribution Width 19.7 % (11.5-14.0); White Blood Count 10.6 K/mm3 (4.0-10.5)
[2016-06-12 05:50] LABS: Total Cells Counted 100
[2016-06-12 06:08] LABS: Albumin * 2.4 gm/dl (3.4-5.0); Bilirubin Direct 0.8 mg/dL (0.0-0.3); Bilirubin, Total 1.2 mg/dL (0.0-1.1); Bilirubin,Indirect 0.4 mg/dL (0.1-0.7); Total Protein 5.8 gm/dL (6.2-8.2)
[2016-06-12 06:09] LABS: Atypical (Reactive) Lymph 3 % (0-2); Band 3 % (0-2.0); Eosinophil 1 % (0-3); Lymphocyte 15 % (20-51); Monocyte 14 % (0-9); Neutrophil 64 % (42-75); Neutrophil # 6.8 K/mm3 (1.3-6.0)
[2016-06-12 06:12] LABS: Hypochromia 1+; Macrocytosis 2+; Platelet Estimate Normal (NORMAL)
[2016-06-12] MEDS: INSULIN LISPRO 100 UNITS/ML VIAL SC SCH ×3 (06:50→17:46)
[2016-06-12] MEDS: PANTOPRAZOLE SODIUM 40 MG TABLET.EC PO SCH ×2 (06:51→20:13)
--- NOTE | 2016-06-12 09:25 | PN ---
Subjective - Date and Time Seen Date: 06/12/16 Time: 08:40 Subjective Narrative: Lab ruling out pathogen on blood culture. Patient has no complaints this morning. Sugars better. WBC count up slightly with 3% bands, cause unknown. Liver panel a wee bit better. Objective - Review of Systems Generalized/Overall Review: Reports: Malaise EENTM: Reports: No Symptoms Reported Respiratory: Reports: No Symptoms Reported Cardiac: Reports: No Symptoms Reported Abdominal: Reports: No Symptoms Reported Genitourinary Symptoms: Reports: No Symptoms Reported Musculoskeletal Complaints: Reports: No Symptoms Reported Neurological: Reports: No Symptoms Reported Skin: Reports: No Symptoms Reported Endocrine: Reports: No Symptoms Reported Misc: All systems neg except as marked - Vitals Vitals: Last Vital Signs Selected Entries 06/12/16 06:29 Temperature 36.7 C Temperature Oral Source Pulse Rate 75 Respiratory 16 Rate Respiratory Normal Depth Respiratory Normal Effort Non-Labored Respiratory Normal Pattern Blood Pressure 104/65 Blood Pressure Sitting Position O2 Sat by Pulse 97 Oximetry Oxygen Delivery Room Air Method - Abnormal Lab Findings Abnormal Lab Findings: Abnormal Lab Results 06/12/16 06/12/16 Range/Units 05:35 05:35 WBC 10.6 H (4.0-10.5) K/mm3 RBC 3.16 L (4.7-6.0) M/mm3 Hgb 10.2 L (13.5-18.0) gm/dL Hct 30.0 L (42.0-52.0) % MCH 32.3 H (27-31) pg RDW 19.7 H (11.5-14.0) % Plt Count 119 L (150-450) K/mm3 MPV 11.4 H (6.0-9.5) fl Band Neuts % (Manual) 3 H (0-2.0) % Lymphocytes % (Manual) 15 L (20-51) % Monocytes % (Manual) 14 H (0-9) % Neutrophils # (Manual) 6.8 H (1.3-6.0) K/mm3 Monocytes # (Manual) 1.5 H (0.0-1.0) k/mm3 Nucleated RBCs 2.0 H (0-1) % Atypic/Reactive Lymphs 3 H (0-2) % Total Bilirubin 1.2 H (0.0-1.1) mg/dL Direct Bilirubin 0.8 H (0.0-0.3) mg/dL AST 217 H (0-48) U/L ALT 132 H (19-67) U/L Alkaline Phosphatase 230 H (50-170) U/L Total Protein 5.8 L (6.2-8.2) gm/dL Albumin 2.4 L (3.4-5.0) gm/dl - Exam Constitutional: Present: Alert, Cooperative, Well developed, No distress ENT Exam: Present: normal ENT inspection Neck: Present: normal inspection Respiratory: Present: lungs clear, no respiratory distress Cardiovascular/Chest: Present: regular rate, rhythm, no murmur Abdomen: Present: Normal bowel sounds, soft, nontender, nondistended, no rebound tenderness, no hepatospenomegaly, no masses Extremity: Absent: pedal edema Skin Exam: Present: normal color, warm/dry, no cyanosis Neurologic: Present: alert Appearance: Present: appropriate appearance, neat, impaired insight, impaired recent memory Eye contact: Present: cooperative Assessment/Plan Plan Narrative: Wait for final blood culture results. Follow labs. - Problems/Diagnosis (1) Gallstones Problem: Acute (2) Dementia Problem: Chronic Qualifiers: Dementia type: associated with alcoholism (3) Anemia Problem: Acute Qualifiers: Anemia type: unspecified type Qualified Code(s): D64.9 - Anemia, unspecified (4) Aspiration pneumonia Problem: Acute Qualifiers: Laterality: right Lung location: lower lobe of lung (5) Hypokalemia Problem: Acute (6) Alcohol abuse Problem: Chronic (7) Dehydration Problem: Resolved
[2016-06-12] MEDS: LACTULOSE 10 G/15 ML BTL PO SCH ×2 (09:50→20:13)
[2016-06-12] MEDS: FOLIC ACID 1 MG TABLET PO SCH (09:51)
[2016-06-12] MEDS: POTASSIUM CHLORIDE 20 MEQ TABLET.SA PO SCH ×2 (09:51→17:45)
[2016-06-12] MEDS: MULTIVITAMINS 1 CAP CAPSULE PO SCH (09:52)
[2016-06-12] MEDS: levETIRAcetam 500 MG TABLET PO SCH ×2 (09:52→20:13)
[2016-06-12] MEDS: THIAMINE HCL 100 MG TABLET PO SCH (09:52)
[2016-06-12] MEDS: SENNOSIDES/DOCUSATE SODIUM 1 TAB TABLET PO SCH (20:13)
[2016-06-12] MEDS: INSULIN GLARGINE,HUM.REC.ANLOG 100 UNITS/ML VIAL SC SCH (20:19)
[2016-06-12] MEDS: AZITHROMYCIN 500 MG in DEXTROSE 5 % IN WATER 250 ML IV SCH ×2 (22:44)
[2016-06-12] MEDS: ACETAMINOPHEN WITH CODEINE 1 EACH TABLET PO PRN (23:36)
[2016-06-13 00:57] LABS: Urine Bilirubin Negative (NEGATIVE); Urine Blood 50 /ul (NEGATIVE); Urine Ketone Negative (NEGATIVE); Urine Nitrite Negative (NEGATIVE); Urine Protein Negative (NEGATIVE); Urine Specific Gravity <=1.005 SP.GR. (1.005-1.030); Urine Urobilinogen Normal (NORMAL)
[2016-06-13 01:08] LABS: Urine Appearance Clear; Urine Bacteria None Seen; Urine Color Yellow; Urine RBC 0-5 /hpf (0-5); Urine WBC None Seen /hpf (0-5)
[2016-06-13 05:54] LABS: Hematocrit 29.8 % (42.0-52.0); Hemoglobin 10.4 gm/dL (13.5-18.0); Mean Cell Volume 96.1 fl (78-100); Mean Corpuscular Hemoglobin 33.5 pg (27-31); Mean Corpuscular Hgb Conc 34.9 g/dl (32-36); Mean Platelet Volume 11.7 fl (6.0-9.5); Platelet Count 164 K/mm3 (150-450); Red Cell Distribution Width 19.9 % (11.5-14.0)
[2016-06-13 06:01] LABS: Total Cells Counted 100
[2016-06-13 06:15] LABS: Albumin * 2.5 gm/dl (3.4-5.0); Anion Gap 11.3 mmol/L (6.8-13.8); BUN/Creatinine Ratio 10.9 (9.0-21.6); Bilirubin Direct 0.6 mg/dL (0.0-0.3); Bilirubin, Total 1.1 mg/dL (0.0-1.1); Bilirubin,Indirect 0.5 mg/dL (0.1-0.7); Calcium * 8.5 mg/dL (7.9-10.9); Carbon Dioxide 26.7 mmol/L (24-32.6); Estimated Creat Clear 198.5
[2016-06-13 06:18] LABS: Atypical (Reactive) Lymph 2 % (0-2); Basophilic Stippling Trace; Lymphocyte 11 % (20-51); Macrocytosis 2+; Monocyte 10 % (0-9); Neutrophil 77 % (42-75); Platelet Estimate Normal (NORMAL); Polychromasia Trace; Target Cells 1+
[2016-06-13] MEDS: INSULIN LISPRO 100 UNITS/ML VIAL SC SCH ×3 (06:47→17:42)
[2016-06-13] MEDS: PANTOPRAZOLE SODIUM 40 MG TABLET.EC PO SCH ×2 (06:53→20:11)
[2016-06-13] MEDS: levETIRAcetam 500 MG TABLET PO SCH ×2 (09:28→20:11)
[2016-06-13] MEDS: POTASSIUM CHLORIDE 20 MEQ TABLET.SA PO SCH ×2 (09:28→17:43)
[2016-06-13] MEDS: MULTIVITAMINS 1 CAP CAPSULE PO SCH (09:28)
[2016-06-13] MEDS: LACTULOSE 10 G/15 ML BTL PO SCH ×2 (09:28→20:10)
[2016-06-13] MEDS: FOLIC ACID 1 MG TABLET PO SCH (09:29)
[2016-06-13] MEDS: THIAMINE HCL 100 MG TABLET PO SCH (09:29)
[2016-06-13 10:34] LABS: Hepatitis C Antibody NON-REACTIVE (NON-REACTIVE)
[2016-06-13 10:52] LABS: Hepatitis A IgM Antibody NON-REACTIVE (NON-REACTIVE); Hepatitis B Surface Antigen NON-REACTIVE (NON-REACTIVE)
[2016-06-13] MEDS ORDERED: VANCOMYCIN HCL 1 GM in DEXTROSE 5 % IN WATER 250 ML IV ONE ×2 (11:00)
[2016-06-13] MEDS: ACETAMINOPHEN WITH CODEINE 1 EACH TABLET PO PRN (11:00)
--- NOTE | 2016-06-13 17:32 | PN ---
Subjective - Date and Time Seen Date: 06/13/16 Time: 07:40 Subjective Narrative: Lab ruling out pathogen on blood culture. Patient c/o chronic pain in hands and feet. Sugars better. WBC count up a little bit more, cause unknown. Liver panel a wee bit better. Objective - Review of Systems Generalized/Overall Review: Reports: Malaise EENTM: Reports: No Symptoms Reported Respiratory: Reports: No Symptoms Reported Cardiac: Reports: No Symptoms Reported Abdominal: Reports: No Symptoms Reported Genitourinary Symptoms: Reports: No Symptoms Reported Musculoskeletal Complaints: Reports: Other - hands and feet hurt Neurological: Reports: No Symptoms Reported Skin: Reports: No Symptoms Reported Endocrine: Reports: No Symptoms Reported Misc: All systems neg except as marked - Vitals Vitals: Last Vital Signs Selected Entries 06/13/16 06:47 Temperature 36.5 C Temperature Oral Source Pulse Rate 97 Respiratory 18 Rate Respiratory Normal Depth Blood Pressure 104/66 Blood Pressure Sitting Position O2 Sat by Pulse 97 Oximetry Oxygen Delivery Room Air Method - Abnormal Lab Findings Abnormal Lab Findings: Abnormal Lab Results 06/10/16 06/13/16 06/13/16 Range/Units 05:20 00:50 05:40 WBC 13.0 H D (4.0-10.5) K/mm3 RBC 3.10 L (4.7-6.0) M/mm3 Hgb 10.4 L (13.5-18.0) gm/dL Hct 29.8 L (42.0-52.0) % MCH 33.5 H (27-31) pg RDW 19.9 H (11.5-14.0) % MPV 11.7 H (6.0-9.5) fl Neutrophils % (Manual) 77 H (42-75) % Lymphocytes % (Manual) 11 L (20-51) % Monocytes % (Manual) 10 H (0-9) % Neutrophils # (Manual) 10.0 H (1.3-6.0) K/mm3 Lymphocytes # (Manual) 1.4 L (1.5-3.5) k/mm3 Monocytes # (Manual) 1.3 H (0.0-1.0) k/mm3 Nucleated RBCs 4.0 H (0-1) % Est GFR (Non-Af Amer) (60-130) mL/min Random Glucose (70-110) mg/dL Direct Bilirubin (0.0-0.3) mg/dL AST (0-48) U/L ALT (19-67) U/L Alkaline Phosphatase (50-170) U/L Total Protein (6.2-8.2) gm/dL Albumin (3.4-5.0) gm/dl Carcinoembryonic Ag 4.6 H ng/mL Urine Glucose (UA) >=1000 H (NEGATIVE) mg/dL Urine Blood 50 H (NEGATIVE) /ul 06/13/16 Range/Units 05:40 WBC (4.0-10.5) K/mm3 RBC (4.7-6.0) M/mm3 Hgb (13.5-18.0) gm/dL Hct (42.0-52.0) % MCH (27-31) pg RDW (11.5-14.0) % MPV (6.0-9.5) fl Neutrophils % (Manual) (42-75) % Lymphocytes % (Manual) (20-51) % Monocytes % (Manual) (0-9) % Neutrophils # (Manual) (1.3-6.0) K/mm3 Lymphocytes # (Manual) (1.5-3.5) k/mm3 Monocytes # (Manual) (0.0-1.0) k/mm3 Nucleated RBCs (0-1) % Est GFR (Non-Af Amer) 165 H (60-130) mL/min Random Glucose 115 H (70-110) mg/dL Direct Bilirubin 0.6 H (0.0-0.3) mg/dL AST 165 H (0-48) U/L ALT 129 H (19-67) U/L Alkaline Phosphatase 251 H (50-170) U/L Total Protein 6.0 L (6.2-8.2) gm/dL Albumin 2.5 L (3.4-5.0) gm/dl Carcinoembryonic Ag ng/mL Urine Glucose (UA) (NEGATIVE) mg/dL Urine Blood (NEGATIVE) /ul - Exam Constitutional: Present: Alert, Oriented x3, Cooperative, Well developed, No distress ENT Exam: Present: normal ENT inspection Neck: Present: normal inspection Respiratory: Present: lungs clear, no respiratory distress Cardiovascular/Chest: Present: regular rate, rhythm, no murmur Abdomen: Present: Normal bowel sounds, soft, nontender, nondistended, no rebound tenderness, no hepatospenomegaly, no masses Extremity: Present: other - dupuytren's contractures both hands. Skin Exam: Present: normal color, warm/dry, no cyanosis Neurologic: Present: alert, oriented x 3 Appearance: Present: impaired insight, impaired recent memory, impaired remote memory Eye contact: Present: cooperative Assessment/Plan Plan Narrative: Since his wbc count is rising in spite of Rocephin, we will assume a resistant organism. Given that the blood culture is so far growing gm positive cocci in clusters, it would be reasonable to switch to Vancomycin, which we will do. - Problems/Diagnosis (1) Gallstones Problem: Acute (2) Dementia Problem: Chronic Qualifiers: Dementia type: associated with alcoholism (3) Anemia Problem: Acute Qualifiers: Anemia type: unspecified type Qualified Code(s): D64.9 - Anemia, unspecified (4) Aspiration pneumonia Problem: Acute Qualifiers: Laterality: right Lung location: lower lobe of lung (5) Hypokalemia Problem: Acute (6) Alcohol abuse Problem: Chronic (7) Dehydration Problem: Resolved (8) Dupuytren's contracture of both hands Problem: Chronic
[2016-06-13] MEDS: SENNOSIDES/DOCUSATE SODIUM 1 TAB TABLET PO SCH (20:11)
[2016-06-13] MEDS: INSULIN GLARGINE,HUM.REC.ANLOG 100 UNITS/ML VIAL SC SCH (20:15)
[2016-06-14] MEDS: AZITHROMYCIN 500 MG in DEXTROSE 5 % IN WATER 250 ML IV SCH ×4 (00:23→22:31)
[2016-06-14] MEDS: VANCOMYCIN HCL 1.25 GM in DEXTROSE 5 % IN WATER 250 ML IV SCH ×4 (01:27→11:26)
[2016-06-14] MEDS ORDERED: CALCIUM CARBONATE 500 MG TAB.CHEW PO PRN (02:39)
[2016-06-14] MEDS: PANTOPRAZOLE SODIUM 40 MG TABLET.EC PO SCH ×2 (07:18→22:09)
[2016-06-14] MEDS: INSULIN LISPRO 100 UNITS/ML VIAL SC SCH ×3 (07:18→17:25)
[2016-06-14 07:42] LABS: Hemoglobin 10.7 gm/dL (13.5-18.0); Mean Cell Volume 98.2 fl (78-100); Mean Corpuscular Hemoglobin 32.8 pg (27-31); Mean Corpuscular Hgb Conc 33.4 g/dl (32-36); Mean Platelet Volume 11.1 fl (6.0-9.5); Platelet Count 234 K/mm3 (150-450); Red Blood Count 3.26 M/mm3 (4.7-6.0); Red Cell Distribution Width 20.2 % (11.5-14.0); White Blood Count 13.6 K/mm3 (4.0-10.5)
[2016-06-14 07:48] LABS: Total Cells Counted 100
[2016-06-14 07:57] LABS: Albumin * 2.6 gm/dl (3.4-5.0); Anion Gap 14.4 mmol/L (6.8-13.8); BUN/Creatinine Ratio 10.5 (9.0-21.6); Bilirubin, Total 1.2 mg/dL (0.0-1.1); Ca. Corrected For Albumin 9.4 mg/dL (8.4-10.2); Calcium * 8.6 mg/dL (7.9-10.9); Carbon Dioxide 24.4 mmol/L (24-32.6); Potassium 3.8 mmol/L (3.4-4.6); Total Protein 6.5 gm/dL (6.2-8.2)
[2016-06-14 08:03] LABS: Band 2 % (0-2.0); Eosinophil 1 % (0-3); Immature Granulocyte 1 (0-1); Lymphocyte 13 % (20-51); Monocyte 7 % (0-9); Neutrophil 76 % (42-75); Neutrophil # 10.3 K/mm3 (1.3-6.0); Platelet Estimate Normal (NORMAL)
[2016-06-14 08:04] LABS: Hypochromia Trace; Microcytosis 2+
--- NOTE | 2016-06-14 08:11 | PN ---
Subjective - Date and Time Seen Date: 06/14/16 Time: 07:30 Subjective Narrative: Lab ruling out pathogen on blood culture. C/O fatigue. Sugars better. WBC count up still, cause unknown. Liver panel a wee bit better. Objective - Review of Systems Generalized/Overall Review: Reports: Malaise, Fatigue EENTM: Reports: No Symptoms Reported Respiratory: Reports: No Symptoms Reported Cardiac: Reports: No Symptoms Reported Abdominal: Reports: No Symptoms Reported Genitourinary Symptoms: Reports: No Symptoms Reported Musculoskeletal Complaints: Reports: No Symptoms Reported Neurological: Reports: No Symptoms Reported Skin: Reports: No Symptoms Reported Endocrine: Reports: No Symptoms Reported Misc: All systems neg except as marked - Vitals Vitals: Last Vital Signs Selected Entries 06/14/16 06:51 Temperature 36.6 C Temperature Oral Source Pulse Rate 86 Respiratory 20 Rate Respiratory Normal Depth Blood Pressure 112/56 Blood Pressure Supine Position O2 Sat by Pulse 98 Oximetry Oxygen Delivery Room Air Method - Abnormal Lab Findings Abnormal Lab Findings: Abnormal Lab Results 06/10/16 06/14/16 06/14/16 Range/Units 05:20 07:35 07:35 WBC 13.6 H (4.0-10.5) K/mm3 RBC 3.26 L (4.7-6.0) M/mm3 Hgb 10.7 L (13.5-18.0) gm/dL Hct 32.0 L (42.0-52.0) % MCH 32.8 H (27-31) pg RDW 20.2 H (11.5-14.0) % MPV 11.1 H (6.0-9.5) fl Neutrophils % (Manual) 76 H (42-75) % Lymphocytes % (Manual) 13 L (20-51) % Neutrophils # (Manual) 10.3 H (1.3-6.0) K/mm3 Nucleated RBCs 2.0 H (0-1) % Anion Gap 14.4 H (6.8-13.8) mmol/L Est GFR (Non-Af Amer) 158 H (60-130) mL/min Total Bilirubin 1.2 H (0.0-1.1) mg/dL AST 105 H (0-48) U/L ALT 110 H (19-67) U/L Alkaline Phosphatase 237 H (50-170) U/L Albumin 2.6 L (3.4-5.0) gm/dl Carcinoembryonic Ag 4.6 H ng/mL - Exam Constitutional: Present: Alert, Oriented x3, Cooperative, Well developed, No distress ENT Exam: Present: normal ENT inspection, hearing grossly normal Neck: Present: normal inspection Respiratory: Present: lungs clear, no respiratory distress Cardiovascular/Chest: Present: regular rate, rhythm, no murmur Abdomen: Present: Normal bowel sounds, soft, nontender, nondistended, no rebound tenderness, no hepatospenomegaly, no masses Extremity: Present: normal inspection, no pedal edema Neurologic: Present: alert, oriented x 3 Appearance: Present: appropriate appearance, neat, impaired insight, impaired recent memory Eye contact: Present: cooperative, normal speech Assessment/Plan Plan Narrative: Blood culture still pending final i.d. WBC still somewhat elevated, now on Vancomycin. Plan to follow labs, wait for final culture report, continue Vancomycin. - Problems/Diagnosis (1) Gallstones Problem: Acute (2) Dementia Problem: Chronic Qualifiers: Dementia type: associated with alcoholism (3) Anemia Problem: Acute Qualifiers: Anemia type: unspecified type Qualified Code(s): D64.9 - Anemia, unspecified (4) Aspiration pneumonia Problem: Acute Qualifiers: Laterality: right Lung location: lower lobe of lung (5) Hypokalemia Problem: Acute (6) Alcohol abuse Problem: Chronic (7) Dehydration Problem: Resolved (8) Dupuytren's contracture of both hands Problem: Chronic (9) Leukocytosis Problem: Acute Qualifiers: Leukocytosis type: unspecified Qualified Code(s): D72.829 - Elevated white blood cell count, unspecified
[2016-06-14] MEDS: THIAMINE HCL 100 MG TABLET PO SCH (09:11)
[2016-06-14] MEDS: FOLIC ACID 1 MG TABLET PO SCH (09:11)
[2016-06-14] MEDS: LACTULOSE 10 G/15 ML BTL PO SCH ×2 (09:11→22:08)
[2016-06-14] MEDS: MULTIVITAMINS 1 CAP CAPSULE PO SCH (09:11)
[2016-06-14] MEDS: levETIRAcetam 500 MG TABLET PO SCH ×2 (09:11→22:09)
[2016-06-14] MEDS: POTASSIUM CHLORIDE 20 MEQ TABLET.SA PO SCH ×2 (09:11→17:26)
[2016-06-14] MEDS: SENNOSIDES/DOCUSATE SODIUM 1 TAB TABLET PO SCH (22:08)
[2016-06-14] MEDS: INSULIN GLARGINE,HUM.REC.ANLOG 100 UNITS/ML VIAL SC SCH (22:19)
[2016-06-14] MEDS: ACETAMINOPHEN WITH CODEINE 1 EACH TABLET PO PRN (22:29)
[2016-06-15 00:32] LABS: Urine Bilirubin Negative (NEGATIVE); Urine Blood Negative /ul (NEGATIVE); Urine Ketone Negative (NEGATIVE); Urine Nitrite Negative (NEGATIVE); Urine Protein Negative (NEGATIVE); Urine Specific Gravity >=1.030 SP.GR. (1.005-1.030); Urine Urobilinogen Normal (NORMAL); Urine pH 5.5 pH (5.0-7.0)
[2016-06-15 00:43] LABS: Urine Appearance Clear; Urine Bacteria 1+; Urine Color Yellow; Urine Hyaline Cast TRACE /LPF; Urine RBC None Seen /hpf (0-5); Urine WBC None Seen /hpf (0-5)
[2016-06-15 00:44] LABS: Urine Mucus Few - 1+
[2016-06-15 06:16] LABS: Hemoglobin 10.4 gm/dL (13.5-18.0); Mean Cell Volume 100.9 fl (78-100); Mean Corpuscular Hemoglobin 32.8 pg (27-31); Mean Corpuscular Hgb Conc 32.5 g/dl (32-36); Mean Platelet Volume 11.3 fl (6.0-9.5); Platelet Count 247 K/mm3 (150-450); Red Blood Count 3.17 M/mm3 (4.7-6.0); Red Cell Distribution Width 20.1 % (11.5-14.0); White Blood Count 10.7 K/mm3 (4.0-10.5)
[2016-06-15 06:19] LABS: Total Cells Counted 100
[2016-06-15 06:33] LABS: Eosinophil 1 % (0-3); Lymphocyte 12 % (20-51); Monocyte 8 % (0-9); Neutrophil 79 % (42-75); Neutrophil # 8.5 K/mm3 (1.3-6.0); Platelet Estimate Normal (NORMAL)
[2016-06-15 06:34] LABS: Albumin * 2.6 gm/dl (3.4-5.0); Anion Gap 13.6 mmol/L (6.8-13.8); Bilirubin Direct 0.6 mg/dL (0.0-0.3); Bilirubin,Indirect 0.4 mg/dL (0.1-0.7); Calcium * 8.6 mg/dL (7.9-10.9); Carbon Dioxide 25.4 mmol/L (24-32.6); Estimated Creat Clear 202.2; Hypochromia 1+; Total Protein 6.6 gm/dL (6.2-8.2)
[2016-06-15 06:43] LABS: BUN/Creatinine Ratio 14.8 (9.0-21.6)
[2016-06-15] MEDS: PANTOPRAZOLE SODIUM 40 MG TABLET.EC PO SCH ×2 (07:18→22:50)
[2016-06-15] MEDS: INSULIN LISPRO 100 UNITS/ML VIAL SC SCH ×3 (07:19→17:56)
[2016-06-15] MEDS: LACTULOSE 10 G/15 ML BTL PO SCH ×2 (08:11→20:48)
[2016-06-15] MEDS: FOLIC ACID 1 MG TABLET PO SCH (08:11)
[2016-06-15] MEDS: MULTIVITAMINS 1 CAP CAPSULE PO SCH (08:12)
[2016-06-15] MEDS: POTASSIUM CHLORIDE 20 MEQ TABLET.SA PO SCH ×2 (08:12→17:57)
[2016-06-15] MEDS: THIAMINE HCL 100 MG TABLET PO SCH (08:12)
[2016-06-15] MEDS: levETIRAcetam 500 MG TABLET PO SCH ×2 (08:12→20:48)
[2016-06-15 15:01] LABS: Hematocrit 31.6 % (42.0-52.0); Hemoglobin 10.4 gm/dL (13.5-18.0); Mean Cell Volume 100.6 fl (78-100); Mean Corpuscular Hemoglobin 33.1 pg (27-31); Mean Corpuscular Hgb Conc 32.9 g/dl (32-36); Mean Platelet Volume 11.1 fl (6.0-9.5); Neutrophil # 9.5 K/mm3 (1.3-6.0); Neutrophil % 77.5 % (42-75.0); Platelet Count 267 K/mm3 (150-450); Red Blood Count 3.14 M/mm3 (4.7-6.0); White Blood Count 12.3 K/mm3 (4.0-10.5)
[2016-06-15 15:17] LABS: ALT 93 U/L (19-67); AST 106 U/L (0-48); Albumin * 2.6 gm/dl (3.4-5.0); Alkaline Phosphatase * 228 U/L (50-170); Amylase * 300 U/L (25-115); Anion Gap 15.6 mmol/L (6.8-13.8); BUN/Creatinine Ratio 16.9 (9.0-21.6); Bilirubin, Total 0.8 mg/dL (0.0-1.1); Blood Urea Nitrogen 10 mg/dL (6-23); Ca. Corrected For Albumin 9.7 mg/dL (8.4-10.2); Calcium * 8.9 mg/dL (7.9-10.9); Carbon Dioxide 23.8 mmol/L (24-32.6); Chloride 102 mmol/L (97-106); Glucose * 148 mg/dL (70-110); Potassium 4.4 mmol/L (3.4-4.6); Sodium 137 mmol/L (132-142); Total Protein 6.6 gm/dL (6.2-8.2)
[2016-06-15] MEDS ORDERED: DIATRIZOATE MEGLU/DIATRIZO SOD 30 ML BTL PO ONE (15:17)
[2016-06-15 15:18] LABS: Troponin I Less than 0.017 ng/ml (0.00-0.10)
[2016-06-15 15:35] LABS: Lipase 2944 U/L (73-393)
[2016-06-15] MEDS: NORMAL SALINE 1,000 ML IV PRN (16:16)
[2016-06-15 16:30] LABS: Urine Bilirubin 1 mg/dl (NEGATIVE); Urine Blood Negative /ul (NEGATIVE); Urine Ketone 5 mg/dL (NEGATIVE); Urine Nitrite Negative (NEGATIVE); Urine Protein Negative (NEGATIVE); Urine Specific Gravity >=1.030 SP.GR. (1.005-1.030); Urine Urobilinogen Normal (NORMAL); Urine pH 5.5 pH (5.0-7.0)
[2016-06-15 16:37] LABS: Urine Appearance Clear; Urine Bacteria 2+; Urine Color Orange; Urine Hyaline Cast 0-5 /LPF; Urine Mucus Moderate - 2+; Urine RBC None Seen /hpf (0-5); Urine WBC 0-5 /hpf (0-5)
[2016-06-15] MEDS: ACETAMINOPHEN WITH CODEINE 1 EACH TABLET PO PRN (18:58)
--- NOTE | 2016-06-15 19:58 | PN ---
Subjective - Date and Time Seen Date: 06/15/16 Time: 13:05 Subjective Narrative: pt admitted with AMS s/p fall at home. detoxed from etoh while in hospital. currently on iv azithromycin for +blood culture, aspiration pneumonia and leukocytosis. blood culture came back as contaminent. was scheduled to go home today. upon assessment of pt, pt c/o diffuse abdominal pain and diarrhea. c/o intermittent chest pain. c/o increased reflux. no fever, no nausea. states he does not feel well enough to go home. also discussed elevated blood sugars and pt states he is willing to check blood sugars at home. also discussed pt's alcoholism and stated that if pt continues to drink at discharge he will have very poor outcomes. Objective - Review of Systems Generalized/Overall Review: Reports: Weakness, Malaise EENTM: Reports: No Symptoms Reported Respiratory: Reports: No Symptoms Reported Cardiac: Reports: Chest Pain. Denies: Syncope Abdominal: Reports: Abdominal Pain, Diarrhea, Other - increased reflus. Denies : Nausea, Vomiting, Constipation Genitourinary Symptoms: Reports: No Symptoms Reported Musculoskeletal Complaints: Reports: No Symptoms Reported Neurological: Reports: Weakness Skin: Reports: No Symptoms Reported Endocrine: Reports: No Symptoms Reported Misc: All systems neg except as marked - Vitals Vitals: Last Vital Signs Temp 37.1 C 06/15/16 18:33 Pulse 89 06/15/16 18:33 Resp 20 06/15/16 18:33 BP 107/68 06/15/16 18:33 Pulse Ox 100 06/15/16 18:33 - Abnormal Lab Findings Abnormal Lab Findings: Abnormal Lab Results 06/14/16 06/15/16 06/15/16 Range/Units 23:50 05:42 05:42 WBC 10.7 H D (4.0-10.5) K/mm3 RBC 3.17 L (4.7-6.0) M/mm3 Hgb 10.4 L (13.5-18.0) gm/dL Hct 32.0 L (42.0-52.0) % MCV 100.9 H (78-100) fl MCH 32.8 H (27-31) pg RDW 20.1 H (11.5-14.0) % MPV 11.3 H (6.0-9.5) fl Immature Gran % (Auto) (0.001-0.429) % Immature Gran # (Auto) (0.000-0.0310) K/mm3 Neutrophils % (42-75.0) % Neutrophils % (Manual) 79 H (42-75) % Lymphocytes % (20-51) % Lymphocytes % (Manual) 12 L (20-51) % Neutrophils # (1.3-6.0) K/mm3 Neutrophils # (Manual) 8.5 H (1.3-6.0) K/mm3 Lymphocytes # (1.5-3.5) k/mm3 Lymphocytes # (Manual) 1.3 L (1.5-3.5) k/mm3 Carbon Dioxide (24-32.6) mmol/L Anion Gap (6.8-13.8) mmol/L Est GFR (Non-Af Amer) 169 H (60-130) mL/min Random Glucose (70-110) mg/dL Direct Bilirubin 0.6 H (0.0-0.3) mg/dL AST 77 H (0-48) U/L ALT 93 H (19-67) U/L Alkaline Phosphatase 218 H (50-170) U/L Albumin 2.6 L (3.4-5.0) gm/dl Amylase (25-115) U/L Lipase (73-393) U/L Urine Glucose (UA) 250 H (NEGATIVE) mg/dL Urine Bilirubin (NEGATIVE) mg/dl Urine Bacteria 1+ H (NONE) Hyaline Casts (NONE) /LPF Urine Mucus Few - 1+ H (NONE) Stl C.difficile Tox A&B (Negative) 06/15/16 06/15/16 06/15/16 Range/Units 14:46 14:46 16:20 WBC 12.3 H (4.0-10.5) K/mm3 RBC 3.14 L (4.7-6.0) M/mm3 Hgb 10.4 L (13.5-18.0) gm/dL Hct 31.6 L (42.0-52.0) % MCV 100.6 H (78-100) fl MCH 33.1 H (27-31) pg RDW 20.0 H (11.5-14.0) % MPV 11.1 H (6.0-9.5) fl Immature Gran % (Auto) 2.70 H (0.001-0.429) % Immature Gran # (Auto) 0.33 H (0.000-0.0310) K/mm3 Neutrophils % 77.5 H (42-75.0) % Neutrophils % (Manual) (42-75) % Lymphocytes % 10.7 L (20-51) % Lymphocytes % (Manual) (20-51) % Neutrophils # 9.5 H (1.3-6.0) K/mm3 Neutrophils # (Manual) (1.3-6.0) K/mm3 Lymphocytes # 1.3 L (1.5-3.5) k/mm3 Lymphocytes # (Manual) (1.5-3.5) k/mm3 Carbon Dioxide 23.8 L (24-32.6) mmol/L Anion Gap 15.6 H (6.8-13.8) mmol/L Est GFR (Non-Af Amer) 152 H (60-130) mL/min Random Glucose 148 H D (70-110) mg/dL Direct Bilirubin (0.0-0.3) mg/dL AST 106 H (0-48) U/L ALT 93 H (19-67) U/L Alkaline Phosphatase 228 H (50-170) U/L Albumin 2.6 L (3.4-5.0) gm/dl Amylase 300 H (25-115) U/L Lipase 2944 H (73-393) U/L Urine Glucose (UA) (NEGATIVE) mg/dL Urine Bilirubin 1 H (NEGATIVE) mg/dl Urine Bacteria 2+ H (NONE) Hyaline Casts 0-5 H (NONE) /LPF Urine Mucus Moderate - 2+ H (NONE) Stl C.difficile Tox A&B (Negative) 06/15/16 Range/Units 17:15 WBC (4.0-10.5) K/mm3 RBC (4.7-6.0) M/mm3 Hgb (13.5-18.0) gm/dL Hct (42.0-52.0) % MCV (78-100) fl MCH (27-31) pg RDW (11.5-14.0) % MPV (6.0-9.5) fl Immature Gran % (Auto) (0.001-0.429) % Immature Gran # (Auto) (0.000-0.0310) K/mm3 Neutrophils % (42-75.0) % Neutrophils % (Manual) (42-75) % Lymphocytes % (20-51) % Lymphocytes % (Manual) (20-51) % Neutrophils # (1.3-6.0) K/mm3 Neutrophils # (Manual) (1.3-6.0) K/mm3 Lymphocytes # (1.5-3.5) k/mm3 Lymphocytes # (Manual) (1.5-3.5) k/mm3 Carbon Dioxide (24-32.6) mmol/L Anion Gap (6.8-13.8) mmol/L Est GFR (Non-Af Amer) (60-130) mL/min Random Glucose (70-110) mg/dL Direct Bilirubin (0.0-0.3) mg/dL AST (0-48) U/L ALT (19-67) U/L Alkaline Phosphatase (50-170) U/L Albumin (3.4-5.0) gm/dl Amylase (25-115) U/L Lipase (73-393) U/L Urine Glucose (UA) (NEGATIVE) mg/dL Urine Bilirubin (NEGATIVE) mg/dl Urine Bacteria (NONE) Hyaline Casts (NONE) /LPF Urine Mucus (NONE) Stl C.difficile Tox A&B Positive H (Negative) - EKG/Xray Findings EKG: NSR, ST elevation - mild in leads 2, 3 and avF - repeated EKG and this had resolved. EKG read: Interp. by me - Exam Constitutional: Present: Alert, Oriented x3, Cooperative, No distress, Looks Older than stated age ENT Exam: Present: hearing grossly normal Neck: Present: full range of motion, supple Breasts: Present: Exam deferred Respiratory: Present: chest non-tender, no respiratory distress, decreased breath sounds Cardiovascular/Chest: Present: normal peripheral pulses, regular rate, rhythm, no chest tenderness, no edema Abdomen: Present: no rebound tenderness, tender - generalized mild ab tenderness , guarding, rigidity, high pitched bowel sounds /Rectal: Present: Exam deferred Extremity: Present: normal range of motion, non-tender, normal inspection Skin Exam: Present: warm/dry, no cyanosis, pallor Neurologic: Present: alert, oriented x 3 Assessment/Plan Plan Narrative: 55 yo male admitted with AMS/anemia. has been on iv azithromycin for aspiration pneumonia - treatment has been completed for this. since final blood culture show contaminent - will d/c abx. pt c/o cp - will check ekg, cxr and cardiac enzymes. c/o ab pain, belly pretty rigid. check amylase/lipase, recheck cbc/cmp. check ct ab/pelvis given significant change. check c diff given abx use. have inclusion special educator talk with pt regarding home glucose monitoring. no discharge today. pt is unsteady on his feet and will need to use a walker with ambulation at discharge due to gait instability and poor balance. further orders based on results and will reassess. - Problems/Diagnosis (1) Anemia Problem: Acute Qualifiers: Anemia type: unspecified type Qualified Code(s): D64.9 - Anemia, unspecified (2) Aspiration pneumonia Problem: Acute Qualifiers: Laterality: right Lung location: lower lobe of lung (3) Gallstones Problem: Acute (4) Leukocytosis Problem: Acute Qualifiers: Leukocytosis type: unspecified Qualified Code(s): D72.829 - Elevated white blood cell count, unspecified (5) Alcohol abuse Problem: Chronic (6) Dupuytren's contracture of both hands Problem: Chronic (7) Chest pain Problem: Acute Qualifiers: Chest pain type: unspecified Qualified Code(s): R07.9 - Chest pain, unspecified (8) Abdominal pain Problem: Acute Qualifiers: Abdominal location: generalized Qualified Code(s): R10.84 - Generalized abdominal pain (9) Gait instability Problem: Acute
[2016-06-15] MEDS: SENNOSIDES/DOCUSATE SODIUM 1 TAB TABLET PO SCH (20:50)
[2016-06-15] MEDS ORDERED: INSULIN GLARGINE,HUM.REC.ANLOG 100 UNITS/ML VIAL SC SCH (21:00)
[2016-06-15] MEDS: metroNIDAZOLE/SODIUM CHLORIDE 500 MG/100 ML BAG IV SCH (21:49)
[2016-06-15] MEDS: AZITHROMYCIN 500 MG in DEXTROSE 5 % IN WATER 250 ML IV SCH ×2 (22:51)
[2016-06-16] MEDS: metroNIDAZOLE/SODIUM CHLORIDE 500 MG/100 ML BAG IV SCH (03:06)
[2016-06-16] MEDS: NORMAL SALINE 1,000 ML IV PRN ×2 (03:07→14:49)
[2016-06-16 06:31] LABS: Hematocrit 28.9 % (42.0-52.0); Hemoglobin 9.4 gm/dL (13.5-18.0); Mean Corpuscular Hemoglobin 32.9 pg (27-31); Mean Corpuscular Hgb Conc 32.5 g/dl (32-36); Mean Platelet Volume 11.2 fl (6.0-9.5); Platelet Count 270 K/mm3 (150-450); Red Blood Count 2.86 M/mm3 (4.7-6.0); Red Cell Distribution Width 19.5 % (11.5-14.0); White Blood Count 8.7 K/mm3 (4.0-10.5)
[2016-06-16 06:34] LABS: Total Cells Counted 100
[2016-06-16] MEDS: INSULIN LISPRO 100 UNITS/ML VIAL SC SCH ×3 (06:40→16:48)
[2016-06-16] MEDS: PANTOPRAZOLE SODIUM 40 MG TABLET.EC PO SCH ×2 (06:41→22:09)
[2016-06-16 06:50] LABS: Albumin * 2.2 gm/dl (3.4-5.0); BUN/Creatinine Ratio 9.1 (9.0-21.6); Calcium * 8.2 mg/dL (7.9-10.9); Potassium 3.6 mmol/L (3.4-4.6); Total Protein 5.8 gm/dL (6.2-8.2)
[2016-06-16 06:51] LABS: Bilirubin, Total 0.7 mg/dL (0.0-1.1); Ca. Corrected For Albumin 9.3 mg/dL (8.4-10.2)
[2016-06-16 07:00] LABS: Anion Gap 13.6 mmol/L (6.8-13.8)
[2016-06-16 07:10] LABS: Band 3 % (0-2.0); Immature Granulocyte 1 (0-1); Lymphocyte 14 % (20-51); Macrocytosis 3+; Monocyte 3 % (0-9); Neutrophil 79 % (42-75); Neutrophil # 6.9 K/mm3 (1.3-6.0); Target Cells 2+
[2016-06-16 07:11] LABS: Hypochromia Trace; Platelet Estimate Normal (NORMAL); Polychromasia Trace
[2016-06-16] MEDS: levETIRAcetam 500 MG TABLET PO SCH ×2 (08:04→22:08)
[2016-06-16] MEDS: FOLIC ACID 1 MG TABLET PO SCH (08:04)
[2016-06-16] MEDS: THIAMINE HCL 100 MG TABLET PO SCH (08:04)
[2016-06-16] MEDS: POTASSIUM CHLORIDE 20 MEQ TABLET.SA PO SCH ×2 (08:04→16:49)
[2016-06-16] MEDS: MULTIVITAMINS 1 CAP CAPSULE PO SCH (08:04)
[2016-06-16] MEDS: LACTULOSE 10 G/15 ML BTL PO SCH ×3 (08:05→16:48)
[2016-06-16] MEDS: SACCHAROMYCES BOULARDII 250 MG CAPSULE PO SCH ×4 (08:06→22:08)
[2016-06-16] MEDS: metroNIDAZOLE 500 MG TABLET PO SCH ×3 (08:06→19:52)
[2016-06-16] MEDS: INSULIN GLARGINE,HUM.REC.ANLOG 100 UNITS/ML VIAL SC SCH ×2 (08:10→19:46)
[2016-06-16] MEDS: ACETAMINOPHEN WITH CODEINE 1 EACH TABLET PO PRN (10:59)
--- NOTE | 2016-06-16 13:01 | PN ---
Subjective - Date and Time Seen Date: 06/16/16 Subjective Narrative: Grew staph epi, a contaminant, on blood culture. C/O he is going to , because now the people in his room are wearing gowns (due to his new diagnosis, C dif colitis). Sugars low. WBC count better. Liver panel a wee bit better, but his ammonia today is 55. Objective - Review of Systems Generalized/Overall Review: Reports: Malaise EENTM: Reports: No Symptoms Reported Respiratory: Reports: No Symptoms Reported Cardiac: Reports: No Symptoms Reported Abdominal: Reports: Diarrhea Genitourinary Symptoms: Reports: No Symptoms Reported Musculoskeletal Complaints: Reports: No Symptoms Reported Neurological: Reports: No Symptoms Reported Skin: Reports: No Symptoms Reported Endocrine: Reports: No Symptoms Reported Misc: All systems neg except as marked - Vitals Vitals: Last Vital Signs Selected Entries 06/16/16 07:00 Temperature 36.7 C Temperature Oral Source Pulse Rate 76 Respiratory 16 Rate Respiratory Normal Depth Respiratory Normal Effort Non-Labored Respiratory Normal Pattern Blood Pressure 131/66 O2 Sat by Pulse 95 Oximetry - Abnormal Lab Findings Abnormal Lab Findings: Abnormal Lab Results 06/15/16 06/15/16 06/15/16 Range/Units 14:46 14:46 16:20 WBC 12.3 H (4.0-10.5) K/mm3 RBC 3.14 L (4.7-6.0) M/mm3 Hgb 10.4 L (13.5-18.0) gm/dL Hct 31.6 L (42.0-52.0) % MCV 100.6 H (78-100) fl MCH 33.1 H (27-31) pg RDW 20.0 H (11.5-14.0) % MPV 11.1 H (6.0-9.5) fl Immature Gran % (Auto) 2.70 H (0.001-0.429) % Immature Gran # (Auto) 0.33 H (0.000-0.0310) K/mm3 Neutrophils % 77.5 H (42-75.0) % Neutrophils % (Manual) (42-75) % Band Neuts % (Manual) (0-2.0) % Lymphocytes % 10.7 L (20-51) % Lymphocytes % (Manual) (20-51) % Neutrophils # 9.5 H (1.3-6.0) K/mm3 Neutrophils # (Manual) (1.3-6.0) K/mm3 Lymphocytes # 1.3 L (1.5-3.5) k/mm3 Lymphocytes # (Manual) (1.5-3.5) k/mm3 Carbon Dioxide 23.8 L (24-32.6) mmol/L Anion Gap 15.6 H (6.8-13.8) mmol/L BUN (6-23) mg/dL Est GFR (Non-Af Amer) 152 H (60-130) mL/min Random Glucose 148 H D (70-110) mg/dL AST 106 H (0-48) U/L ALT 93 H (19-67) U/L Alkaline Phosphatase 228 H (50-170) U/L Ammonia (11-35) mcmol/L Total Protein (6.2-8.2) gm/dL Albumin 2.6 L (3.4-5.0) gm/dl Amylase 300 H (25-115) U/L Lipase 2944 H (73-393) U/L Urine Bilirubin 1 H (NEGATIVE) mg/dl Urine Bacteria 2+ H (NONE) Hyaline Casts 0-5 H (NONE) /LPF Urine Mucus Moderate - 2+ H (NONE) Stl C.difficile Tox A&B (Negative) 06/15/16 06/16/16 06/16/16 Range/Units 17:15 05:50 05:50 WBC (4.0-10.5) K/mm3 RBC 2.86 L (4.7-6.0) M/mm3 Hgb 9.4 L (13.5-18.0) gm/dL Hct 28.9 L (42.0-52.0) % MCV 101.0 H (78-100) fl MCH 32.9 H (27-31) pg RDW 19.5 H (11.5-14.0) % MPV 11.2 H (6.0-9.5) fl Immature Gran % (Auto) (0.001-0.429) % Immature Gran # (Auto) (0.000-0.0310) K/mm3 Neutrophils % (42-75.0) % Neutrophils % (Manual) 79 H (42-75) % Band Neuts % (Manual) 3 H (0-2.0) % Lymphocytes % (20-51) % Lymphocytes % (Manual) 14 L (20-51) % Neutrophils # (1.3-6.0) K/mm3 Neutrophils # (Manual) 6.9 H (1.3-6.0) K/mm3 Lymphocytes # (1.5-3.5) k/mm3 Lymphocytes # (Manual) 1.2 L (1.5-3.5) k/mm3 Carbon Dioxide (24-32.6) mmol/L Anion Gap (6.8-13.8) mmol/L BUN 5 L (6-23) mg/dL Est GFR (Non-Af Amer) 165 H (60-130) mL/min Random Glucose (70-110) mg/dL AST 79 H (0-48) U/L ALT 75 H (19-67) U/L Alkaline Phosphatase 182 H (50-170) U/L Ammonia (11-35) mcmol/L Total Protein 5.8 L (6.2-8.2) gm/dL Albumin 2.2 L (3.4-5.0) gm/dl Amylase 211 H (25-115) U/L Lipase 1420 H (73-393) U/L Urine Bilirubin (NEGATIVE) mg/dl Urine Bacteria (NONE) Hyaline Casts (NONE) /LPF Urine Mucus (NONE) Stl C.difficile Tox A&B Positive H (Negative) 06/16/16 Range/Units 05:50 WBC (4.0-10.5) K/mm3 RBC (4.7-6.0) M/mm3 Hgb (13.5-18.0) gm/dL Hct (42.0-52.0) % MCV (78-100) fl MCH (27-31) pg RDW (11.5-14.0) % MPV (6.0-9.5) fl Immature Gran % (Auto) (0.001-0.429) % Immature Gran # (Auto) (0.000-0.0310) K/mm3 Neutrophils % (42-75.0) % Neutrophils % (Manual) (42-75) % Band Neuts % (Manual) (0-2.0) % Lymphocytes % (20-51) % Lymphocytes % (Manual) (20-51) % Neutrophils # (1.3-6.0) K/mm3 Neutrophils # (Manual) (1.3-6.0) K/mm3 Lymphocytes # (1.5-3.5) k/mm3 Lymphocytes # (Manual) (1.5-3.5) k/mm3 Carbon Dioxide (24-32.6) mmol/L Anion Gap (6.8-13.8) mmol/L BUN (6-23) mg/dL Est GFR (Non-Af Amer) (60-130) mL/min Random Glucose (70-110) mg/dL AST (0-48) U/L ALT (19-67) U/L Alkaline Phosphatase (50-170) U/L Ammonia 55.0 H (11-35) mcmol/L Total Protein (6.2-8.2) gm/dL Albumin (3.4-5.0) gm/dl Amylase (25-115) U/L Lipase (73-393) U/L Urine Bilirubin (NEGATIVE) mg/dl Urine Bacteria (NONE) Hyaline Casts (NONE) /LPF Urine Mucus (NONE) Stl C.difficile Tox A&B (Negative) - Exam Constitutional: Present: Alert, Cooperative, Well developed ENT Exam: Present: normal ENT inspection, hearing grossly normal Neck: Present: normal inspection Respiratory: Present: lungs clear, no respiratory distress Cardiovascular/Chest: Present: regular rate, rhythm, no murmur Abdomen: Present: Normal bowel sounds, soft, nontender, nondistended, no rebound tenderness, no hepatospenomegaly, no masses Extremity: Present: no pedal edema Skin Exam: Present: normal color, warm/dry, no cyanosis Neurologic: Present: alert Appearance: Present: appropriate appearance, neat, impaired insight, impaired recent memory Eye contact: Present: cooperative Assessment/Plan Plan Narrative: Continue oral flagyl. increase lactulose. follow labs. adjust insulin. - Problems/Diagnosis (1) Gallstones Problem: Acute (2) Dementia Problem: Chronic Qualifiers: Dementia type: associated with alcoholism (3) Anemia Problem: Acute Qualifiers: Anemia type: unspecified type Qualified Code(s): D64.9 - Anemia, unspecified (4) Aspiration pneumonia Problem: Acute Qualifiers: Laterality: right Lung location: lower lobe of lung (5) Hypokalemia Problem: Acute (6) Alcohol abuse Problem: Chronic (7) Dehydration Problem: Resolved (8) Dupuytren's contracture of both hands Problem: Chronic (9) Leukocytosis Problem: Acute Qualifiers: Leukocytosis type: unspecified Qualified Code(s): D72.829 - Elevated white blood cell count, unspecified (10) Hyperammonemia Problem: Acute Narrative: 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
[2016-06-17] MEDS: metroNIDAZOLE 500 MG TABLET PO SCH ×4 (02:13→20:12)
[2016-06-17] MEDS: NORMAL SALINE 1,000 ML IV PRN ×2 (02:14→22:07)
[2016-06-17 05:06] LABS: Hematocrit 32.4 % (42.0-52.0); Hemoglobin 10.4 gm/dL (13.5-18.0); Mean Cell Volume 102.5 fl (78-100); Mean Corpuscular Hemoglobin 32.9 pg (27-31); Mean Corpuscular Hgb Conc 32.1 g/dl (32-36); Mean Platelet Volume 10.6 fl (6.0-9.5); Neutrophil # 5.4 K/mm3 (1.3-6.0); Neutrophil % 72.9 % (42-75.0); Platelet Count 279 K/mm3 (150-450); Red Blood Count 3.16 M/mm3 (4.7-6.0); Red Cell Distribution Width 19.6 % (11.5-14.0); White Blood Count 7.5 K/mm3 (4.0-10.5)
[2016-06-17 06:04] LABS: Albumin * 2.4 gm/dl (3.4-5.0); Anion Gap 12.4 mmol/L (6.8-13.8); BUN/Creatinine Ratio 3.9 (9.0-21.6); Bilirubin Direct 0.5 mg/dL (0.0-0.3); Bilirubin, Total 0.8 mg/dL (0.0-1.1); Bilirubin,Indirect 0.3 mg/dL (0.1-0.7); Calcium * 8.1 mg/dL (7.9-10.9); Estimated Creat Clear 214.1; Potassium 3.4 mmol/L (3.4-4.6); Total Protein 6.2 gm/dL (6.2-8.2)
[2016-06-17] MEDS: INSULIN LISPRO 100 UNITS/ML VIAL SC SCH ×3 (06:33→17:01)
[2016-06-17] MEDS: PANTOPRAZOLE SODIUM 40 MG TABLET.EC PO SCH ×2 (07:22→20:13)
[2016-06-17] MEDS: INSULIN GLARGINE,HUM.REC.ANLOG 100 UNITS/ML VIAL SC SCH ×2 (07:24→20:27)
[2016-06-17] MEDS: ACETAMINOPHEN WITH CODEINE 1 EACH TABLET PO PRN (07:31)
[2016-06-17] MEDS: URSODIOL 300 MG CAPSULE PO SCH ×3 (10:03→17:00)
[2016-06-17] MEDS: POTASSIUM CHLORIDE 20 MEQ TABLET.SA PO SCH ×2 (10:03→17:00)
[2016-06-17] MEDS: SACCHAROMYCES BOULARDII 250 MG CAPSULE PO SCH ×4 (10:04→20:12)
[2016-06-17] MEDS: MULTIVITAMINS 1 CAP CAPSULE PO SCH (10:04)
[2016-06-17] MEDS: FOLIC ACID 1 MG TABLET PO SCH (10:04)
[2016-06-17] MEDS: levETIRAcetam 500 MG TABLET PO SCH ×2 (10:04→20:13)
[2016-06-17] MEDS: THIAMINE HCL 100 MG TABLET PO SCH (10:05)
[2016-06-17] MEDS: LACTULOSE 10 G/15 ML BTL PO SCH ×3 (10:05→17:00)
--- NOTE | 2016-06-17 17:10 | PN ---
Subjective - Date and Time Seen Date: 06/17/16 Time: 07:20 Subjective Narrative: Loose stools. Reported some blood in one. C/O back and leg pain, chronic problems. Eating well. Objective - Review of Systems Generalized/Overall Review: Reports: Malaise EENTM: Reports: No Symptoms Reported Respiratory: Reports: No Symptoms Reported Cardiac: Reports: No Symptoms Reported Abdominal: Reports: Other Genitourinary Symptoms: Reports: No Symptoms Reported Musculoskeletal Complaints: Reports: Back Pain, Other - foot, leg and hand pain Neurological: Reports: No Symptoms Reported Skin: Reports: No Symptoms Reported Endocrine: Reports: No Symptoms Reported Misc: All systems neg except as marked - Vitals Vitals: Last Vital Signs Selected Entries 06/17/16 06:31 Temperature 36.6 C Temperature Oral Source Pulse Rate 71 Respiratory 20 Rate Respiratory Normal Depth Respiratory Normal Effort Respiratory Normal Pattern Blood Pressure 104/65 Blood Pressure Sitting Position O2 Sat by Pulse 98 Oximetry Oxygen Delivery Room Air Method - Abnormal Lab Findings Abnormal Lab Findings: Abnormal Lab Results 06/17/16 06/17/16 Range/Units 05:06 05:06 RBC 3.16 L (4.7-6.0) M/mm3 Hgb 10.4 L (13.5-18.0) gm/dL Hct 32.4 L (42.0-52.0) % MCV 102.5 H (78-100) fl MCH 32.9 H (27-31) pg RDW 19.6 H (11.5-14.0) % MPV 10.6 H (6.0-9.5) fl Immature Gran % (Auto) 1.20 H (0.001-0.429) % Immature Gran # (Auto) 0.09 H (0.000-0.0310) K/mm3 Lymphocytes % 15.3 L (20-51) % Monocytes % 9.3 H (0.0-9) % Lymphocytes # 1.1 L (1.5-3.5) k/mm3 Chloride 107 H (97-106) mmol/L Carbon Dioxide 23.0 L (24-32.6) mmol/L BUN 2 L D (6-23) mg/dL Est GFR (Non-Af Amer) 180 H (60-130) mL/min BUN/Creatinine Ratio 3.9 L (9.0-21.6) Direct Bilirubin 0.5 H (0.0-0.3) mg/dL AST 76 H (0-48) U/L ALT 72 H (19-67) U/L Alkaline Phosphatase 173 H (50-170) U/L Albumin 2.4 L (3.4-5.0) gm/dl - Exam Constitutional: Present: Alert, Cooperative, Well developed, No distress ENT Exam: Present: normal ENT inspection Neck: Present: normal inspection Respiratory: Present: lungs clear, no respiratory distress Cardiovascular/Chest: Present: regular rate, rhythm, no murmur Abdomen: Present: Normal bowel sounds, soft, nontender, nondistended, no rebound tenderness, no hepatospenomegaly, no masses Extremity: Present: no pedal edema Skin Exam: Present: normal color, warm/dry, no cyanosis Neurologic: Present: alert Appearance: Present: appropriate appearance, neat, impaired insight, impaired recent memory Eye contact: Present: cooperative Assessment/Plan Plan Narrative: Continue flagyl. Follow labs. PT OT> - Problems/Diagnosis (1) Gallstones Problem: Acute (2) Dementia Problem: Chronic Qualifiers: Dementia type: associated with alcoholism (3) Anemia Problem: Acute Qualifiers: Anemia type: unspecified type Qualified Code(s): D64.9 - Anemia, unspecified (4) Aspiration pneumonia Problem: Resolved Qualifiers: Laterality: right Lung location: lower lobe of lung (5) Hypokalemia Problem: Acute (6) Alcohol abuse Problem: Chronic (7) Dehydration Problem: Resolved (8) Dupuytren's contracture of both hands Problem: Chronic (9) Leukocytosis Problem: Acute Qualifiers: Leukocytosis type: unspecified Qualified Code(s): D72.829 - Elevated white blood cell count, unspecified (10) Hyperammonemia Problem: Acute (11) C. difficile colitis Problem: Acute
[2016-06-18] MEDS: metroNIDAZOLE 500 MG TABLET PO SCH ×4 (01:54→20:00)
[2016-06-18 05:39] LABS: Hematocrit 30.5 % (42.0-52.0); Hemoglobin 9.8 gm/dL (13.5-18.0); Mean Cell Volume 102.7 fl (78-100); Mean Corpuscular Hgb Conc 32.1 g/dl (32-36); Mean Platelet Volume 10.7 fl (6.0-9.5); Platelet Count 303 K/mm3 (150-450); Red Blood Count 2.97 M/mm3 (4.7-6.0); Red Cell Distribution Width 19.3 % (11.5-14.0); White Blood Count 8.8 K/mm3 (4.0-10.5)
[2016-06-18 05:48] LABS: Total Cells Counted 100
[2016-06-18 05:57] LABS: Albumin * 2.4 gm/dl (3.4-5.0); Anion Gap 12.3 mmol/L (6.8-13.8); BUN/Creatinine Ratio 4.4 (9.0-21.6); Bilirubin Direct 0.4 mg/dL (0.0-0.3); Bilirubin, Total 0.7 mg/dL (0.0-1.1); Bilirubin,Indirect 0.3 mg/dL (0.1-0.7); Calcium * 8.1 mg/dL (7.9-10.9); Carbon Dioxide 22.4 mmol/L (24-32.6); Estimated Creat Clear 242.6; Potassium 3.7 mmol/L (3.4-4.6); Total Protein 6.1 gm/dL (6.2-8.2)
[2016-06-18 06:36] LABS: Eosinophil 1 % (0-3); Lymphocyte 13 % (20-51); Monocyte 4 % (0-9); Neutrophil 82 % (42-75); Neutrophil # 7.2 K/mm3 (1.3-6.0)
[2016-06-18 06:38] LABS: Platelet Estimate Normal (NORMAL); RBC Morphology Normal (NORMAL)
[2016-06-18] MEDS: INSULIN GLARGINE,HUM.REC.ANLOG 100 UNITS/ML VIAL SC SCH ×2 (06:57→19:55)
[2016-06-18] MEDS: INSULIN LISPRO 100 UNITS/ML VIAL SC SCH ×3 (06:57→16:54)
[2016-06-18] MEDS: PANTOPRAZOLE SODIUM 40 MG TABLET.EC PO SCH ×2 (06:57→20:46)
[2016-06-18] MEDS: ACETAMINOPHEN WITH CODEINE 1 EACH TABLET PO PRN (07:08)
--- NOTE | 2016-06-18 07:27 | PN ---
Subjective - Date and Time Seen Date: 06/18/16 Time: 06:50 Subjective Narrative: Loose stools. Wants solid food. Trouble swallowing potassium pills. Still on telemetry. Objective - Review of Systems Generalized/Overall Review: Reports: Weakness, Malaise EENTM: Reports: No Symptoms Reported Respiratory: Reports: No Symptoms Reported Cardiac: Reports: No Symptoms Reported Abdominal: Reports: Diarrhea Genitourinary Symptoms: Reports: No Symptoms Reported Musculoskeletal Complaints: Reports: Other - hand and foot pain. Neurological: Reports: No Symptoms Reported Skin: Reports: No Symptoms Reported Endocrine: Reports: No Symptoms Reported Misc: All systems neg except as marked - Vitals Vitals: Last Vital Signs Selected Entries 06/18/16 03:00 Temperature 37.0 C Temperature Oral Source Pulse Rate 72 Respiratory 18 Rate Blood Pressure 120/66 Blood Pressure Sitting Position O2 Sat by Pulse 100 Oximetry Oxygen Delivery Room Air Method - Abnormal Lab Findings Abnormal Lab Findings: Abnormal Lab Results 06/18/16 06/18/16 06/18/16 Range/Units 05:36 05:36 05:36 RBC 2.97 L (4.7-6.0) M/mm3 Hgb 9.8 L (13.5-18.0) gm/dL Hct 30.5 L (42.0-52.0) % MCV 102.7 H (78-100) fl MCH 33.0 H (27-31) pg RDW 19.3 H (11.5-14.0) % MPV 10.7 H (6.0-9.5) fl Neutrophils % (Manual) 82 H (42-75) % Lymphocytes % (Manual) 13 L (20-51) % Neutrophils # (Manual) 7.2 H (1.3-6.0) K/mm3 Lymphocytes # (Manual) 1.1 L (1.5-3.5) k/mm3 Carbon Dioxide 22.4 L (24-32.6) mmol/L BUN 2 L (6-23) mg/dL Est GFR (Non-Af Amer) 208 H (60-130) mL/min BUN/Creatinine Ratio 4.4 L (9.0-21.6) Direct Bilirubin 0.4 H (0.0-0.3) mg/dL AST 52 H (0-48) U/L Ammonia 41.0 H (11-35) mcmol/L Total Protein 6.1 L (6.2-8.2) gm/dL Albumin 2.4 L (3.4-5.0) gm/dl - Exam Constitutional: Present: Alert, Oriented x3, Cooperative, Well developed, No distress ENT Exam: Present: normal ENT inspection, hearing grossly normal Neck: Present: normal inspection Respiratory: Present: lungs clear, no respiratory distress Cardiovascular/Chest: Present: regular rate, rhythm, no murmur Abdomen: Present: Normal bowel sounds, soft, nontender, nondistended, no rebound tenderness, no hepatospenomegaly, no masses Extremity: Present: no pedal edema Skin Exam: Present: normal color, warm/dry, no cyanosis Neurologic: Present: alert, oriented x 3 Appearance: Present: appropriate appearance, neat, impaired insight, impaired recent memory Eye contact: Present: cooperative, good eye contact, normal speech Assessment/Plan Plan Narrative: DC tele. Follow labs. Liquid potassium. Advance. diet. - Problems/Diagnosis (1) Gallstones Problem: Acute (2) Dementia Problem: Chronic Qualifiers: Dementia type: associated with alcoholism (3) Anemia Problem: Acute Qualifiers: Anemia type: unspecified type Qualified Code(s): D64.9 - Anemia, unspecified (4) Aspiration pneumonia Problem: Resolved Qualifiers: Laterality: right Lung location: lower lobe of lung (5) Hypokalemia Problem: Acute (6) Alcohol abuse Problem: Chronic (7) Dehydration Problem: Resolved (8) Dupuytren's contracture of both hands Problem: Chronic (9) Leukocytosis Problem: Acute Qualifiers: Leukocytosis type: unspecified Qualified Code(s): D72.829 - Elevated white blood cell count, unspecified (10) Hyperammonemia Problem: Acute (11) C. difficile colitis Problem: Acute
[2016-06-18] MEDS: URSODIOL 300 MG CAPSULE PO SCH ×3 (09:07→16:54)
[2016-06-18] MEDS: FOLIC ACID 1 MG TABLET PO SCH (09:07)
[2016-06-18] MEDS: SACCHAROMYCES BOULARDII 250 MG CAPSULE PO SCH ×4 (09:07→20:46)
[2016-06-18] MEDS: POTASSIUM CHLORIDE 40 MEQ/15 ML BTL PO SCH ×2 (09:07→20:46)
[2016-06-18] MEDS: LACTULOSE 10 G/15 ML BTL PO SCH ×3 (09:07→16:54)
[2016-06-18] MEDS: MULTIVITAMINS 1 CAP CAPSULE PO SCH (09:08)
[2016-06-18] MEDS: THIAMINE HCL 100 MG TABLET PO SCH (09:08)
[2016-06-18] MEDS: levETIRAcetam 500 MG TABLET PO SCH ×2 (09:08→20:46)
[2016-06-19] MEDS: metroNIDAZOLE 500 MG TABLET PO SCH ×4 (01:51→19:24)
[2016-06-19 05:56] LABS: Hematocrit 30.7 % (42.0-52.0); Mean Cell Volume 100.3 fl (78-100); Mean Corpuscular Hemoglobin 32.7 pg (27-31); Mean Corpuscular Hgb Conc 32.6 g/dl (32-36); Mean Platelet Volume 10.3 fl (6.0-9.5); Platelet Count 329 K/mm3 (150-450); Red Blood Count 3.06 M/mm3 (4.7-6.0); Red Cell Distribution Width 18.5 % (11.5-14.0); White Blood Count 8.1 K/mm3 (4.0-10.5)
[2016-06-19 06:10] LABS: Total Cells Counted 100
[2016-06-19 06:13] LABS: Albumin * 2.4 gm/dl (3.4-5.0); Anion Gap 12.4 mmol/L (6.8-13.8); Bilirubin Direct 0.3 mg/dL (0.0-0.3); Bilirubin, Total 0.6 mg/dL (0.0-1.1); Bilirubin,Indirect 0.3 mg/dL (0.1-0.7); Calcium * 8.8 mg/dL (7.9-10.9); Carbon Dioxide 24.5 mmol/L (24-32.6); Estimated Creat Clear 218.3; Potassium 3.9 mmol/L (3.4-4.6); Total Protein 6.1 gm/dL (6.2-8.2)
[2016-06-19] MEDS: INSULIN LISPRO 100 UNITS/ML VIAL SC SCH ×3 (06:28→16:05)
[2016-06-19] MEDS: PANTOPRAZOLE SODIUM 40 MG TABLET.EC PO SCH ×2 (06:29→21:57)
[2016-06-19] MEDS: INSULIN GLARGINE,HUM.REC.ANLOG 100 UNITS/ML VIAL SC SCH ×2 (06:30→19:18)
--- NOTE | 2016-06-19 06:32 | PN ---
Subjective - Date and Time Seen Date: 06/19/16 Time: 06:28 Subjective Narrative: Good appetite. Stools less loose. Scored 26/30 on most recent minimental status exam. Amylase and Lipase mildly elevated. Objective - Review of Systems Generalized/Overall Review: Reports: Malaise EENTM: Reports: No Symptoms Reported Respiratory: Reports: No Symptoms Reported Cardiac: Reports: No Symptoms Reported Abdominal: Reports: No Symptoms Reported Genitourinary Symptoms: Reports: No Symptoms Reported Musculoskeletal Complaints: Reports: No Symptoms Reported Neurological: Reports: No Symptoms Reported Skin: Reports: No Symptoms Reported Endocrine: Reports: No Symptoms Reported Misc: All systems neg except as marked - Vitals Vitals: Last Vital Signs Selected Entries 06/19/16 03:21 Temperature 36 C L Temperature Tympanic Source Pulse Rate 84 Pulse Rhythm Regular Respiratory 18 Rate Respiratory Normal Depth Respiratory Normal Effort Blood Pressure 121/78 Blood Pressure Sitting Position O2 Sat by Pulse 97 Oximetry Oxygen Delivery Room Air Method - Abnormal Lab Findings Abnormal Lab Findings: Abnormal Lab Results 06/18/16 06/19/16 06/19/16 Range/Units 05:36 05:45 05:45 RBC 3.06 L (4.7-6.0) M/mm3 Hgb 10.0 L (13.5-18.0) gm/dL Hct 30.7 L (42.0-52.0) % MCV 100.3 H (78-100) fl MCH 32.7 H (27-31) pg RDW 18.5 H (11.5-14.0) % MPV 10.3 H (6.0-9.5) fl Neutrophils % (Manual) 82 H (42-75) % Lymphocytes % (Manual) 13 L (20-51) % Neutrophils # (Manual) 7.2 H (1.3-6.0) K/mm3 Lymphocytes # (Manual) 1.1 L (1.5-3.5) k/mm3 BUN 2 L (6-23) mg/dL Est GFR (Non-Af Amer) 184 H (60-130) mL/min BUN/Creatinine Ratio 4.0 L (9.0-21.6) Total Protein 6.1 L (6.2-8.2) gm/dL Albumin 2.4 L (3.4-5.0) gm/dl Amylase 144 H (25-115) U/L Lipase 1004 H (73-393) U/L - Exam Constitutional: Present: Alert, Cooperative, Well developed, No distress ENT Exam: Present: normal ENT inspection, hearing grossly normal Neck: Present: normal inspection Respiratory: Present: normal breath sounds, no respiratory distress Cardiovascular/Chest: Present: regular rate, rhythm, no murmur Abdomen: Present: Normal bowel sounds, soft, nontender, nondistended, no rebound tenderness, no hepatospenomegaly, no masses Extremity: Present: normal inspection, no pedal edema Skin Exam: Present: normal color, warm/dry, no cyanosis Neurologic: Present: alert Appearance: Present: appropriate appearance, neat, impaired insight Eye contact: Present: cooperative, good eye contact, normal speech Assessment/Plan Plan Narrative: Continue with current plan. Labs as needed. Home soon. - Problems/Diagnosis (1) Gallstones Problem: Acute (2) Dementia Problem: Chronic Qualifiers: Dementia type: associated with alcoholism (3) Anemia Problem: Acute Qualifiers: Anemia type: unspecified type Qualified Code(s): D64.9 - Anemia, unspecified (4) Aspiration pneumonia Problem: Resolved Qualifiers: Laterality: right Lung location: lower lobe of lung (5) Hypokalemia Problem: Acute (6) Alcohol abuse Problem: Chronic (7) Dehydration Problem: Resolved (8) Dupuytren's contracture of both hands Problem: Chronic (9) Leukocytosis Problem: Acute Qualifiers: Leukocytosis type: unspecified Qualified Code(s): D72.829 - Elevated white blood cell count, unspecified (10) Hyperammonemia Problem: Acute (11) C. difficile colitis Problem: Acute
[2016-06-19 06:49] LABS: Lymphocyte 15 % (20-51); Monocyte 8 % (0-9); Neutrophil 77 % (42-75); Neutrophil # 6.2 K/mm3 (1.3-6.0); Platelet Estimate Normal (NORMAL); RBC Morphology Normal (NORMAL)
[2016-06-19] MEDS: MULTIVITAMINS 1 CAP CAPSULE PO SCH (08:29)
[2016-06-19] MEDS: URSODIOL 300 MG CAPSULE PO SCH ×3 (08:29→16:05)
[2016-06-19] MEDS: LACTULOSE 10 G/15 ML BTL PO SCH ×3 (08:29→16:05)
[2016-06-19] MEDS: FOLIC ACID 1 MG TABLET PO SCH (08:29)
[2016-06-19] MEDS: levETIRAcetam 500 MG TABLET PO SCH ×2 (08:29→21:56)
[2016-06-19] MEDS: SACCHAROMYCES BOULARDII 250 MG CAPSULE PO SCH ×4 (08:29→21:56)
[2016-06-19] MEDS: THIAMINE HCL 100 MG TABLET PO SCH (08:30)
[2016-06-19] MEDS: POTASSIUM CHLORIDE 40 MEQ/15 ML BTL PO SCH ×2 (08:30→21:57)
[2016-06-19] MEDS: ACETAMINOPHEN WITH CODEINE 1 EACH TABLET PO PRN (19:28)
[2016-06-20] MEDS: metroNIDAZOLE 500 MG TABLET PO SCH ×2 (02:36→07:00)
[2016-06-20] MEDS: INSULIN LISPRO 100 UNITS/ML VIAL SC SCH (06:58)
[2016-06-20] MEDS: PANTOPRAZOLE SODIUM 40 MG TABLET.EC PO SCH (07:00)
[2016-06-20] MEDS: INSULIN GLARGINE,HUM.REC.ANLOG 100 UNITS/ML VIAL SC SCH (07:00)
[2016-06-20 07:44] VITALS: BP 107/69
[2016-06-20] MEDS: ACETAMINOPHEN WITH CODEINE 1 EACH TABLET PO PRN (09:08)
--- NOTE | 2016-06-20 09:09 | DS ---
(1) Gallstones Problem: Chronic (2) Dementia Diagnosis(s): Most recent minimental status exam score 26/30 Problem: Chronic Qualifiers: Dementia type: associated with alcoholism (3) Anemia Problem: Chronic Qualifiers: Anemia type: unspecified type Qualified Code(s): D64.9 - Anemia, unspecified (4) Aspiration pneumonia Problem: Resolved Qualifiers: Laterality: right Lung location: lower lobe of lung (5) Hypokalemia Problem: Resolved (6) Alcohol abuse Problem: Chronic (7) Dehydration Problem: Resolved (8) Dupuytren's contracture of both hands Problem: Chronic (9) Leukocytosis Problem: Resolved Qualifiers: Leukocytosis type: unspecified Qualified Code(s): D72.829 - Elevated white blood cell count, unspecified (10) Hyperammonemia Problem: Chronic (11) C. difficile colitis Problem: Resolved Description of Stay: Aspiration pneumonia improved with IV antibiotics. At the end of the treatment course, developed C dif colitis, being treated with oral flagyl. Generally improved overall while in the hospital. 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 Strongly advised no alcohol on multiple occasions. Prognosis is fair to good if he strictly avoids alcohol. Procedures Performed: none Discharge Disposition: Home self care Disposition: Home self-care Condition: Fair Discharge Activity: Activity as tolerated Discharge Diet: Consistent carbs, Other - liver failure. please teach him and his significant other these diets prior to discharge. Problem Oriented Discharge Instructions to Patient/Family: Smoking Cessation, Tips for Success, [id number], Diabetes and Foot Care, Blood Glucose Monitoring , Adult, Diabetes Mellitus and Food, Aspiration Pneumonia, Alcoholic Liver Disease, Clostridium Difficile FAQs - ADAM, Clostridium Difficile Infection, [id number] Additional Patient Instructions (free text): Fingerstick blood sugars before meals and at bedtime. Please call his pharmacy prior to discharge and make sure he has all the supplies for this to last [address] Lo 1 week. CBC BMP Liver Panel, ammonia level, protime 1 week. Prescriptions (Any new or edited meds): Acetaminophen with Codeine [Tylenol-Codeine 300 MG/30 MG] 1 each PO Q8H PRN #30 tablet PRN Reason: Mild Pain Folic Acid 1 mg PO DAILY #30 tablet Lactulose [Enulose] 10 g PO TID #1350 ml Multivitamins [Multivitamin Jenna] 1 cap PO DAILY #30 capsule Potassium Chloride [Potassium Chloride 40 meq/15ml Liquid] 40 meq PO BID #1 btl Saccharomyces Boulardii [Florastor] 250 mg PO QID #120 capsule Thiamine HCl [Vitamin B-1] 100 mg PO DAILY #30 tablet Ursodiol [Actigall] 300 mg PO TID #90 capsule metroNIDAZOLE [Flagyl] 500 mg PO QID #40 tablet Complete Home Medications List: Complete Home Medication List: levETIRAcetam [Keppra] 500 mg PO BID 09/25/14 Acetaminophen with Codeine [Tylenol-Codeine 300 MG/30 MG] 1 each PO Q8H PRN #30 tablet 06/20/16 Calcium Carbonate [Tums] 500 mg PO QID PRN #0 tab.chew 06/20/16 Folic Acid 1 mg PO DAILY #30 tablet 06/20/16 Lactulose [Enulose] 10 g PO TID #1350 ml 06/20/16 Multivitamins [Multivitamin Jenna] 1 cap PO DAILY #30 capsule 06/20/16 Potassium Chloride [Potassium Chloride 40 meq/15ml Liquid] 40 meq PO BID #1 btl 06/20/16 Saccharomyces Boulardii [Florastor] 250 mg PO QID #120 capsule 06/20/16 Thiamine HCl [Vitamin B-1] 100 mg PO DAILY #30 tablet 06/20/16 Ursodiol [Actigall] 300 mg PO TID #90 capsule 06/20/16 metroNIDAZOLE [Flagyl] 500 mg PO QID #40 tablet 06/20/16
[2016-06-20] MEDS: URSODIOL 300 MG CAPSULE PO SCH (09:10)
[2016-06-20] MEDS: THIAMINE HCL 100 MG TABLET PO SCH (09:10)
[2016-06-20] MEDS: MULTIVITAMINS 1 CAP CAPSULE PO SCH (09:11)
[2016-06-20] MEDS: FOLIC ACID 1 MG TABLET PO SCH (09:11)
[2016-06-20] MEDS: SACCHAROMYCES BOULARDII 250 MG CAPSULE PO SCH (09:11)
[2016-06-20] MEDS: POTASSIUM CHLORIDE 40 MEQ/15 ML BTL PO SCH (09:11)
[2016-06-20] MEDS: levETIRAcetam 500 MG TABLET PO SCH (09:11)
[2016-06-20] MEDS: LACTULOSE 10 G/15 ML BTL PO SCH (09:21)
== END 2016-06-20 11:20 | disposition home or self-care (01) | DRG 178 ==
LOC: ER 05:47 → MS 11:08
PROVIDERS: ADMIT Internal Medicine; ATTEND Allergy & Immunology
PROC: HZ2ZZZZ Detoxification Services for Substance Abuse Treatment (ICD-10-PCS; principal; 2016-06-08)
PROC: 4A033R1 Measurement of Arterial Saturation, Peripheral, Percutaneous Approach (ICD-10-PCS; 2016-06-08)
DX: J69.0 Pneumonitis due to inhalation of food and vomit (principal); D62 Acute posthemorrhagic anemia; A04.7 Enterocolitis due to Clostridium difficile; E72.20 Disorder of urea cycle metabolism, unspecified; R40.0 Somnolence; G40.909 Epilepsy, unspecified, not intractable, without status epilepticus; E86.0 Dehydration; E87.6 Hypokalemia; K59.00 Constipation, unspecified; F17.210 Nicotine dependence, cigarettes, uncomplicated; M72.0 Palmar fascial fibromatosis [Dupuytren]; F10.97 Alcohol use, unspecified with alcohol-induced persisting dementia; K80.20 Calculus of gallbladder without cholecystitis without obstruction; K70.40 Alcoholic hepatic failure without coma; K70.30 Alcoholic cirrhosis of liver without ascites; D72.829 Elevated white blood cell count, unspecified; Z23 Encounter for immunization
CPT/HCPCS: 36415; 36600; 70450; 71010; 71020; 71260; 72170; 74020; 74177; 76700; 76705; 78226; 80048; 80053; 80061; 80074; 80076; 80307; 81001; 82140; 82150; 82272; 82378; 82550; 82607; 82728; 82746; 82803; 83036; 83540; 83550; 83690; 83735; 84484; 85007; 85025; 85027; 86850; 86900; 87040; 87045; 87046; 87077; 87086; 87186; 87493; 90686; 93005; 94762; 96361; 96365; 96366; 96375; 97110; 97116; 97161; 99284; A9537; G0008; G0481; P9016

== ENCOUNTER 2016-08-02 08:54 | Day surgery (SDC) | payer OTHER ==
[~2016-08-02 08:54] MED LIST: RINGERS SOLUTION,LACTATED 1,000 ML IV PRN
--- OUTSIDE RECORDS SUMMARY | 2016-08-02 08:58 | XMS REPORT | Continuity of Care Document ---
:1960 Author Organization [facility] ([facility]) Address [address] [place] [address] Phone [phone] Care Team Providers Name Role Phone Elvis Lo Primary Care Provider [phone] Source Comments This disclosure is being made pursuant to the Care Everywhere program, applicable federal and state laws, and may not contain all informaitonavailable regarding this patient.[facility] ([facility]) Active Allergies and Adverse Reactions [...] hand 04/08/2015 S/P craniotomy 07/30/2013 Overview: Right [place] bone cranioplasty Acquired skull defect 07/16/2013 Cerebral [...] Taken Blood Pressure 145/96 04/08/2015 9:20 AM MANAGER STATISTICS Pulse 123 04/08/2015 9:20 AM MANAGER STATISTICS Temperature 36.1 C (97 F) 04/08/2015 9:20 AM MANAGER STATISTICS Respiratory Rate 16 07/31/2013 11:58 AM CDT Height 1.73 m (5' 8.11") 04/08/2015 9:20 AM MANAGER STATISTICS Weight 59.875 kg (132 lb) 04/08/2015 9:20 AM MANAGER STATISTICS Body Mass Index 20.01 04/08/2015 9:20 AM MANAGER STATISTICS Oxygen Saturation 95% 07/31/2013 11:58 AM CDT [...]
[2016-08-02] MEDS ORDERED: RINGERS SOLUTION,LACTATED 1,000 ML IV ONE (09:45)
[2016-08-02 11:45] VITALS: BP 125/75
--- NOTE | 2016-08-02 16:00 | OR ---
Operative Report - Dictated Report Narrative: Date 08/02/2016 Preop diagnosis: GERD, dysphagia Postop diagnosis: Severe Machado-esophagitis, Distal esophageal stricture Procedure: Flexible Esophagoscopy Staff surgeon: Brent Velazco MD Proctoring surgeon: Demarco Aragon MD Anesthesia: MAC per RESIDENTIAL SUBCONTRACTOR EBL: none Description: After informed consent a bite block was inserted and IV sedation was administered per RESIDENTIAL SUBCONTRACTOR. Flexible video endoscope was inserted through the bite block and posterior pharynx into the esophagus under direct vision. He was immediately noted to have severe erosive machado- esophagitis with significant friability and fibrinous exudate. The scope was cautiously advanced to the distal esophagus were a 10mm stricture was noted. No attempt was made to try to pass beyond this, no biopsies were taken, and no attempt was made at balloon dilation due to the severity of the findings. The scope was withdrawn. Patient tolerated the procedure well without apparent complications and was discharged from the endoscopy suite in stable condition. RECOMMENDATIONS: Discontinue most of his medications except the anti-seizure and protonix. Will add liquid carafate and follow-up in one week. Will need to be re-scoped in 1 month.
== END 2016-08-02 08:55 | disposition home or self-care (01) ==
LOC: AMB 08:54
PROVIDERS: ATTEND Specialist
PROC: 0DJ08ZZ Inspection of Upper Intestinal Tract, Via Natural or Artificial Opening Endoscopic (ICD-10-PCS; principal; 2016-08-02 10:15)
DX: K22.10 Ulcer of esophagus without bleeding (principal); K21.0 Gastro-esophageal reflux disease with esophagitis; K22.2 Esophageal obstruction; I10 Essential (primary) hypertension; J44.9 Chronic obstructive pulmonary disease, unspecified; K72.90 Hepatic failure, unspecified without coma; F17.200 Nicotine dependence, unspecified, uncomplicated; Z68.1 Body mass index [BMI] 19.9 or less, adult

== ENCOUNTER 2016-09-30 08:51 | Day surgery (SDC) | payer OTHER ==
[~2016-09-30 08:51] MED LIST changes: +RINGER'S SOLUTION,LACTATED 1,000 ML IV PRN; -RINGERS SOLUTION,LACTATED 1,000 ML IV PRN
--- NOTE | 2016-09-30 11:07 | OR ---
Operative Report - Dictated Report Narrative: Date: 09/30/2016 Preop diagnosis: Severe esophagitis and distal esophageal stricture Postop diagnosis: Same, hiatal hernia, gastritis Procedure: EGD with distal esophageal dilation and antral biopsy for CLOtest Surgeon: Brent Velazco MD Proctoring Surgeon: Demarco Aragon MD Anesthesia: MAC per [employer] E[employer]MENT SALES MANAGER Specimen: Antrum for CLOtest EBL: minimal Description: After informed consent a bite block was inserted and conscious sedation was administered. Endoscope was inserted through the bite block, through the posterior pharynx and into the esophagus under direct vision. Severe esophagitis with fibrinous exudate was noted beginning at 30 cm. The distal esophagus was strictured and would not admit the scope into the stomach. A balloon dilator was passed through the stricture and inflated to 15mm for 1 minute. The scope was withdrawn slightly and inflation was repeated. This was repeated one additional time. We were then able to advance the scope into the stomach where punctate hemorrhages were seen in the mucosa. Biopsy for CLOtest was performed. The scope was withdrawn. The patient tolerated the procedure well without apparent complications and was discharged from the endoscopy suite in stable condition. RECOMMENDATIONS: Continue acid suppression and carafate. Cease alcohol intake. Repeat endoscopy and dilation in 4-6 weeks under GETA.
[2016-09-30 11:48] VITALS: BP 134/83
== END 2016-09-30 08:52 | disposition home or self-care (01) ==
LOC: SUR 08:51
PROVIDERS: ATTEND Specialist
PROC: 0D758ZZ Dilation of Esophagus, Via Natural or Artificial Opening Endoscopic (ICD-10-PCS; 2016-09-30)
PROC: 0DB68ZX Excision of Stomach, Via Natural or Artificial Opening Endoscopic, Diagnostic (ICD-10-PCS; principal; 2016-09-30 10:00)
DX: K21.0 Gastro-esophageal reflux disease with esophagitis (principal); K22.2 Esophageal obstruction; K29.70 Gastritis, unspecified, without bleeding; K44.9 Diaphragmatic hernia without obstruction or gangrene; I10 Essential (primary) hypertension; J44.9 Chronic obstructive pulmonary disease, unspecified; F17.200 Nicotine dependence, unspecified, uncomplicated; Z68.1 Body mass index [BMI] 19.9 or less, adult

== ENCOUNTER 2016-11-15 06:44 | Day surgery (SDC) | payer OTHER ==
[2016-11-15] MEDS ORDERED: RINGER'S SOLUTION,LACTATED 1,000 ML IV ONE (07:30)
--- NOTE | 2016-11-15 10:08 | OR ---
Operative Report - Dictated Report Narrative: Date: 11/15/2016 Preop dx: Esophagitis with stricture Postop dx: Gastritis, esophagitis, small hiatal hernia Procedure: Esophagogastroduodenoscopy Surgeon: Brent Velazco MD Anesthesia: GETA EBL: none Specimen: none Complications: none apparent Description: After informed consent and the induction of GETA a flexible video endoscopy was inserted per os through the posterior pharynx and into the esophagus under direct vision. The sdcope was advanced through the esophagus, stomach and to the pylorus. The stomach showed punctate hemorrhages consistent with gastritis. The distal esophagus had punctate hemorrhages and significant exudate. No stricture was encountered. The remainder of the esophagus was normal.The scope was withdrawn. The patient tolerated the procedure well without apparent complications and was discharge from the OR in stable condition.
[2016-11-15 11:11] VITALS: BP 119/83
== END 2016-11-15 06:45 | disposition home or self-care (01) ==
LOC: AMB 06:44
PROVIDERS: ATTEND Specialist
PROC: 0DJ08ZZ Inspection of Upper Intestinal Tract, Via Natural or Artificial Opening Endoscopic (ICD-10-PCS; principal; 2016-11-15 08:00)
DX: K21.0 Gastro-esophageal reflux disease with esophagitis (principal); K44.9 Diaphragmatic hernia without obstruction or gangrene; K29.70 Gastritis, unspecified, without bleeding; I10 Essential (primary) hypertension; F17.200 Nicotine dependence, unspecified, uncomplicated; Z68.20 Body mass index [BMI] 20.0-20.9, adult